=== PATIENT | female | born 1965 | race Two or more races ===

== ENCOUNTER 2024-11-28 08:22 | Outpatient (REF) | payer OTHER, SELFPAY ==
[2024-11-28 09:56] LABS: MANUAL DIFF FLAG NO
[2024-11-28 10:07] LABS: Basophils Absolute Auto 0.1 X10*3/uL (0.0-0.2); Basophils Percent Auto 1.1 % (0-2); Eosinophils Absolute Auto 0.1 X10*3/uL (0.0-0.4); Eosinophils Percent Auto 1.1 % (0-4); Hematocrit 42.3 % (37.0-47.0); Hemoglobin 13.8 g/dl (12.0-16.0); Imm Gran Abs Auto 0.01 X10*3/uL (0.00-0.03); Imm Gran Pct Auto 0.2 % (0.0-0.4); Lymphocytes Absolute Auto 1.3 X10*3/uL (1.2-4.9); Lymphocytes Percent Auto 23.6 % (20-40); Mean Corpuscular HGB Conc 32.6 g/dl (31.0-35.0); Mean Corpuscular Hemoglobin 28.9 pg (27.0-33.0); Mean Corpuscular Volume 88.7 fL (80.0-98.0); Mean Platelet Volume 9.6 fL (9.4-12.3); Monocytes Absolute Auto 0.4 X10*3/uL (0.1-1.2); Monocytes Percent Auto 7.6 % (2-11); Neutrophils Absolute Auto 3.5 x10*3/uL (2.0-8.3); Neutrophils Percent Auto 66.4 % (45-73); Platelet Count 257 X10*3/uL (160-400); Red Blood Count 4.77 X10*6/uL (4.20-5.50); White Blood Count 5.3 X10*3/uL (4.8-10.8)
[2024-11-28 10:35] LABS: Alanine Aminotransferase 69 U/L (0-31); Albumin Level 4.4 g/dL (3.5-5.0); Alkaline Phosphatase 74 U/L (39-117); Anion Gap 12 (12-20); Aspartate Amino Transferase 45 U/L (5-31); Bilirubin Total 0.4 mg/dL (0.0-1.0); Blood Urea Nitrogen 10 mg/dL (9-16); Carbon Dioxide 30 mmol/L (22-29); Chloride 108 mmol/L (96-108); Estimated Glomerular Filt Rate > 60; Glucose Random 85 mg/dL (60-115); Potassium 4.6 mmol/L (3.3-5.1); Sodium 145 mmol/L (135-145); Total Protein 7.5 g/dL (6.5-8.0)
[2024-11-28 10:45] LABS: Erythrocyte Sedimentation Rate 3 MM/HR (0-20)
[2024-11-28 11:04] LABS: Appearance Urine Clear; Color Urine Yellow; Glucose Urine UA Negative (Negative); Leukocyte Esterase Urine Negative (Negative); Nitrite Urine Negative (Negative); PH 5.5 (5.0-9.0); Specific Gravity - Urine 1.025 (1.005-1.025); UMIC TRIGGER UA YES; Urine Blood Moderate (2+) (Negative); Urine Ketones Negative (Negative); Urine Protein Negative (Neg-Trace)
[2024-11-28 11:18] LABS: Bacteria Urine 1+ (None Seen); Hyaline Casts Urine 0-2 /LPF (0-2); WBC Urine 0-5 /HPF (0-5)
[2024-11-28 11:30] LABS: Creatinine Urine 151.86 mg/dL; Protein/Creatinine Ratio, Ur 0.09 (<0.2); Total Protein Urine Random 13 mg/dL (<12)
[2024-11-29 16:29] LABS: Anti DNA DS Antibody 5 IU/mL; Antibody to SS-A Antigen <1.0 NEG AI (<1.0 NEG); Antibody to SS-B Antigen <1.0 NEG AI (<1.0 NEG); SM/Ribonucleoprotein Ab <1.0 NEG AI (<1.0 NEG); Smith Protein <1.0 NEG AI (<1.0 NEG)
[2024-11-29 21:34] LABS: Cardiolipin IgG Ab <2.0 GPL-U/mL; Cardiolipin IgM Ab 5.5 MPL-U/mL
[2024-11-30 11:24] LABS: Complement C3 115 mg/dL (83-193)
[2024-12-02 14:43] LABS: Vitamin D 25-OH, D2 21 ng/mL; Vitamin D 25-OH, D3 <4 ng/mL; Vitamin D 25-OH, Total 21 ng/mL (30-100)
[2024-12-02 14:59] LABS: DNAds, Crithidia Antibody 1:40 titer (<1:10); DNAds, Crithidia Antibody Positive (Negative)
[2024-12-03 12:23] LABS: Anti Nuclear Antibody Pattern Nuclear, Homogeneous; Anti Nuclear Antibody Screen POSITIVE (NEGATIVE)
[2024-12-03 14:43] LABS: Beta-2 Glycoprotein IgA 2.4 U/mL (<20.0); Beta-2 Glycoprotein IgG <2.0 U/mL (<20.0); Beta-2 Glycoprotein IgM 3.7 U/mL (<20.0)
[2024-12-03 15:54] LABS: IgA 270 mg/dL (47-310); IgG 1241 mg/dL (600-1640); IgM 92 mg/dL (50-300)
[2024-12-04 07:29] LABS: Prot Elec - Albumin 4.5 g/dL (3.8-4.8); Prot Elec - Alpha1 0.2 g/dL (0.2-0.3); Prot Elec - Alpha2 0.8 g/dL (0.5-0.9); Prot Elec - Beta 1 0.4 g/dL (0.4-0.6); Prot Elec - Beta 2 0.4 g/dL (0.2-0.5); Prot Elec - Gamma 1.1 g/dL (0.8-1.7); Prot Elec - Total Protein 7.4 g/dL (6.1-8.1)
[2024-12-04 12:13] LABS: Hexagonal Phase Neutralization Weak Positive (Negative)
[2024-12-04 12:43] LABS: PTT (LAC) Screen 60 sec (<=40); Thrombin Clotting Time 19 sec (13-19)
== END 2024-11-28 08:23 | disposition home or self-care (01) ==
LOC: HO.LAB 08:22
PROVIDERS: Visit Provider Student in an Organized Health Care Education/Training Program
DX: M32.9 Systemic lupus erythematosus, unspecified (principal); R76.8 Other specified abnormal immunological findings in serum; E55.9 Vitamin D deficiency, unspecified
CPT/HCPCS: 80053; 81001; 82306; 82570; 82784; 84156; 84165; 85025; 85597; 85598; 85613; 85652; 85670; 85730; 86038; 86039; 86140; 86146; 86147; 86160; 86225; 86235; 86255; 86334; 86335; 86880; 99202

== ENCOUNTER 2024-11-28 08:22 | Outpatient (AMB) | payer OTHER, SELFPAY ==
--- NOTE | 2024-11-28 08:23 | A.OFFVIS_ITS ---
Vital Signs 11/28/24 08:33 Height 5 ft 5 in Weight 125 lb 10.616 oz BMI 20.9 BP 90/64 Blood Pressure Location Lt brachial Position Sitting Pulse 87 Pulse Source Pulse Oximeter Pulse Oximetry (%) 97 Oxygen Delivery Method Room Air Intake Visit Reasons: SLE Intake Note: Patient presents for SLE. I feel pain on my toes numbness and my legs feel numb. I been feeling this symptoms for about two years. I don't take any medication Allergies No Known Allergies Allergy (Verified 11/28/24 08:30) Medication List - Last Reconciled 11/28/24 by Virginia Multani MD albuterol sulfate 90 mcg/actuation (Ventolin HFA) inhalation apixaban (Eliquis) 5 mg PO BID metoprolol tartrate 25 mg PO BID mometasone 0.1% 0 appl topical HPI Comments Details: Patient is a 59 y.o. female smoker (88 pack year) with Afib on Eliquis who presents for evaluation of positive MARTINEZ. About 2 years ago she started to notice pins and needles affecting just her feet. 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 The sensation would occur every day. Improved with movement of the feet. Had EMG done which she was told was normal. Then 6 months ago she started noticing black stools. Fecal occult was positive for blood and so she was sent to GI and had a colonoscopy as well as Urology to evaluate her bladder. All testing was unremarkable. GI did not attribute the Eliquis with her black stools. 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 Denies photosensitivity, alopecia, oral/nasal ulcers, sicca symptoms, lymphadenopathy, chest pain/shortness of breath, inflammatory type joint pain, foamy urine, lower extremity edema, muscle weakness, Raynaud's Also denies history of seizure, CVA, psychosis, history of kidney problems, history of cytopenias, history of VTE including PE or DVTs OB History: +1 (miscarriage at 1-2 months) No hx of pre-eclampsia No hx of placental insufficiency Strong family history of lupus on maternal side: sister, aunt, cousin, another aunt who from lupus [facility] Medical History (Updated 11/28/24 @ 09:06 by Virginia Multani MD) Positive MARTINEZ (antinuclear antibody) Family History (Updated 11/28/24 @ 08:31 by SUSAN Olson) Sister Lupus (systemic lupus erythematosus) Social History (Updated 11/28/24 @ 08:33 by SUSAN Olson) Household Members: None Housing: Apartment Alcohol intake: current Patient Tobacco Use Status: Current someday Tobacco user Tobacco use type: Cigarette Cigarette Packs Per Day: 0.5 Years Smoked: 40 Review of Systems Const Details: Review of Systems Constitutional: Denies fever, chills, weight loss ENT: Denies vision changes, eye pain or eye redness, dental caries, dry mouth GI: Denies nausea, vomiting, diarrhea, abdominal pain, change in BM Pulm: Denies SOB, LUNA, hemoptysis, wheezing Cards: Denies chest pain, palpitations Skin: Denies Raynaud's, rash, nail changes, photosensitivity, 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 Well appearing and in no apparent painful distress HEENT Conjunctiva and sclera clear. ?Pupils equal round and reactive to light. ?No lymphadenopathy. ? CHEST/RESPIRATORY SYSTEM Normal respiratory effort and able to speak in complete sentences. ?Clear to auscultation bilaterally. ?No crackles, rales, rhonchi, wheezes heard. CARDIAC SYSTEM Regular rate and rhythm. ?S1 and S2 heard no murmurs. 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 No deformities noted. ?No synovitis noted to the MCPs, PIPs or DIPs. ?No tenderness to palpation of these joints. Wrists: ?Full range of motion at the wrists without pain. ?No tenderness to palpation or synovitis noted to the wrists. Elbows: Full range of motion without pain. No tenderness, weakness, swelling, increased warmth or erythema. Shoulders: Full range of motion without pain. No tenderness, weakness, swelling, increased warmth or erythema. Hips: Full range of motion without pain. Hip bursa: No tenderness to palpation Knees: ?Full range of motion. ?No tenderness, swelling, increased warmth or erythema.?No effusion or crepitations Ankles: Full range of motion. ?No tenderness, swelling, increased warmth or erythema.? Feet: ?Negative squeeze test. ?No tenderness to palpation or swelling of the MTPs. Tender points:?No tenderness to palpation of the bilateral trapezius, supraspinatus, greater trochanters, anterior costochondral junctions, bilateral gluteal areas, bilateral suboccipital muscle insertions SKIN Faint erythema noted over the cheeks and above eye brows Results Reviewed Results Reviewed: 07/2024 MARTINEZ 1:640 Homogenous dsDNA 860 (<200) 06/2024 WBC 3.1 RBC 4.6 HB 13.4 HCT 42.[address] Abdomen/Pelvis w/ contrast 06/2024 Lower thorax: No infiltrate in the basal lungs. No pleural effusions. No significant pericardial effusion. Liver: No new lesion detected Gallbladder/biliary tree: No calcified gallstones or pericholecystic inflammatory change. No biliary duct dilation Spleen: No abnormality detected Pancreas: No new lesion detected. No pancreatic ductal dilatation Adrenal glands: No masses. Kidneys/ureters: No hydronephrosis or perinephric fat stranding. No lesion detected. Vasculature: Mild atherosclerotic calcifications. No abdominal aortic aneurysm. Hepatic veins and portal vein are patent. Peritoneum: No evidence of free intraperitoneal air, free fluid or organized collection. Lymph nodes: No lymphadenopathy detected Bowel: No evidence of bowel obstruction. No bowel inflammatory changes. Normal appendix Body wall: No suspicious mass Bladder: Diffuse wall thickening is probably related to underdistention Reproductive: Interval decrease in size of a large hair homogeneous uterine fibroid replacing much of the uterus which now appears up to 9.6 cm compared with 12 cm previously. 1.1 cm cyst in the left ovary. No right ovarian abnormality Bones: Multilevel degenerative changes in the spine. Degenerative changes also involve the sacroiliac joints and symphysis pubis as before. Assessment & Plan Assessment & Plan (1) Positive MARTINEZ (antinuclear antibody): Code(s): R76.8 - Other specified abnormal immunological findings in serum Category: Medical Plan: #Positive MARTINEZ Patient with high titre MARTINEZ and dsDNA without any other obvious signs or symptoms related to lupus Will check lupus related labs and make a determination of treatment based on the results Plan - Check CBC, CMP, ESR, CRP, LA, B2G, ACL, UA, SPEP, UPC, Urine fixation, serum fixation, vit D, - RTC 2 weeks Plan I spent 45 minutes reviewing the record and labs, taking a history, examining the patient, discussing the treatment plan and documenting in the medical record Orders: Orders Anti DNA DS Antibody Today M3.9 - Systemic lupus erythematosus, unspecified Complement C3 Today M3.9 - Systemic lupus erythematosus, unspecified C Reactive Protein Today M32.9 - Systemic lupus erythematosus, unspecified DNA Double Stranded-Crithidia Today M32.9 - Systemic lupus erythematosus, unspecified Erythrocyte Sedimentation Rate Today M32.9 - Systemic lupus erythematosus, unspecified Protein Creatinine Ratio, Ur Today M32.9 - Systemic lupus erythematosus, unspecified Complete Blood Count Auto Diff Today M3.9 - Systemic lupus erythematosus, unspecified Direct Karina (CAMILO) Today M3.9 - Systemic lupus erythematosus, unspecified Protein Electrophoresis, Serum Today M3.9 - Systemic lupus erythematosus, unspecified Immunofixation Pnl, Serum Today R76.8 - Other specified abnormal immunological findings in serum MARTINEZ Reflex Titer and Pattern Today M32.9 - Systemic lupus erythematosus, unspecified Anti Extractable Nuclear Ag Today M32.9 - Systemic lupus erythematosus, unspecified Complement C4 Today M32.9 - Systemic lupus erythematosus, unspecified Lupus Anticoagulant Panel Today M32.9 - Systemic lupus erythematosus, unspecified Sjogren's Antibodies Today M32.9 - Systemic lupus erythematosus, unspecified UA w Microscopic Today M32.9 - Systemic lupus erythematosus, unspecified Beta-2 Glycoprotein Antibody Today M32.9 - Systemic lupus erythematosus, unspecified Cardiolipin Antibodies Today M32.9 - Systemic lupus erythematosus, unspecified Comprehensive Met. Panel Today M32.9 - Systemic lupus erythematosus, unspecified Vitamin D 25-OH (D2 and D3) Today E55.9 - Vitamin D deficiency, unspecified, M32.9 - Systemic lupus erythematosus, unspecified Immunoglobulins,IgG IgA IgM Today M32.9 - Systemic lupus erythematosus, unspecified Immunofixation, Random Urine Today M32.9 - Systemic lupus erythematosus, unspecified Coding Level of Care Code New Pt Level 4 (40617) Complex EM visit Add On G2211 Diagnoses Positive MARTINEZ (antinuclear antibody) R76.8
[2024-11-28 08:33] VITALS: BP 90/64; PULSE 87; O2SAT 97; BMI 20.9
== END 2024-11-28 09:19 | disposition home or self-care (01) ==
LOC: HO.RHE 08:22
PROVIDERS: Visit Provider Student in an Organized Health Care Education/Training Program
DX: R76.8 Other specified abnormal immunological findings in serum (principal)
CPT/HCPCS: 99204; G2211

== ENCOUNTER 2024-12-20 10:32 | Outpatient (AMB) | payer OTHER, SELFPAY ==
--- NOTE | 2024-12-20 10:53 | A.OFFVIS_ITS ---
Vital Signs 12/20/24 10:57 Height 5 ft 5 in Weight 127 lb 3.307 oz BMI 21.2 BP 115/68 Blood Pressure Location Rt brachial Position Sitting Pulse 72 Pulse Source Pulse Oximeter Pulse Oximetry (%) 99 Oxygen Delivery Method Room Air Intake Visit Reasons: SLE Intake Note: Patient presents for SLE. Allergies No Known Allergies Allergy (Verified 12/20/24 10:57) Medication List - Last Reconciled 12/20/24 by Virginia Multani MD albuterol sulfate 90 mcg/actuation (Ventolin HFA) inhalation apixaban (Eliquis) 5 mg PO BID metoprolol tartrate 25 mg PO BID mometasone 0.1% 0 appl topical HPI Comments Details: Patient is a 59 y.o. female smoker (88 pack year) with Afib on Eliquis who presents for follow up Interval History: Patient last seen 11/28/2024. At that time she was establishing care for the evaluation of positive MARTINEZ. History at that time was not consistent with connective tissue disease with no h istory of Raynaud's, photosensitivity, oral or nasal ulcers, sicca symptoms or any venous thromboembolism. She did have a very strong family history of lupus Exam was only significant for skin hyperpigmentation around the eyes. She was sent for blood work and urine studies Today, Patient does have have any new complaints She states that the elevated transaminases and RBCs in the blood are not new and they were previously evaluated by her PCP and she was sent for ultrasound and urologic evaluation which all came back normal. Rheumatologic History: Due to her high positive MARTINEZ, positive double-stranded DNA and strong family history of lupus it is reasonable to diagnosed her as undifferentiated connective tissue disease versus early lupus Initial history: About 2 years ago she started to notice pins and needles affecting just her feet. 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 The sensation would occur every day. Improved with movement of the feet. Had EMG done which she was told was normal. Then 6 months ago she started noticing black stools. Fecal occult was positive for blood and so she was sent to GI and had a colonoscopy as well as Urology to evaluate her bladder. All testing was unremarkable. GI did not attribute the Eliquis with her black stools. 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 Denies photosensitivity, alopecia, oral/nasal ulcers, sicca symptoms, lymphadenopathy, chest pain/shortness of breath, inflammatory type joint pain, foamy urine, lower extremity edema, muscle weakness, Raynaud's Also denies history of seizure, CVA, psychosis, history of kidney problems, history of cytopenias, history of VTE including PE or DVTs OB History: +1 (miscarriage at 1-2 months) No hx of pre-eclampsia No hx of placental insufficiency Strong family history of lupus on maternal side: sister, aunt, cousin, another aunt who from lupus Current Rheumatology Medication(s): [facility] Medical History (Updated 12/20/24 @ 11:58 by Virginia Multani MD) Hematuria Transaminitis Long-term use of Plaquenil Undifferentiated connective tissue disease Positive MARTINEZ (antinuclear antibody) Family History Sister Lupus (systemic lupus erythematosus) Social History Household Members: None Housing: Apartment Alcohol intake: current Patient Tobacco Use Status: Current someday Tobacco user Tobacco use type: Cigarette Cigarette Packs Per Day: 0.5 Years Smoked: 40 Review of Systems Const Details: Review of Systems Constitutional: Denies fever, chills, weight loss ENT: Denies vision changes, eye pain or eye redness, dental caries, dry mouth GI: Denies nausea, vomiting, diarrhea, abdominal pain, change in BM Pulm: Denies SOB, LUNA, hemoptysis, wheezing Cards: Denies chest pain, palpitations Skin: Denies Raynaud's, nail changes, photosensitivity, 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 Well appearing and in no apparent painful distress HEENT Conjunctiva and sclera clear. ?Pupils equal round and reactive to light. ?No lymphadenopathy. ? CHEST/RESPIRATORY SYSTEM Normal respiratory effort and able to speak in complete sentences. ?Clear to auscultation bilaterally. ?No crackles, rales, rhonchi, wheezes heard. CARDIAC SYSTEM Regular rate and rhythm. ?S1 and S2 heard no murmurs. 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 No deformities noted. ?No synovitis noted to the MCPs, PIPs or DIPs. ?No tenderness to palpation of these joints. Wrists: ?Full range of motion at the wrists without pain. ?No tenderness to palpation or synovitis noted to the wrists. Elbows: Full range of motion without pain. No tenderness, weakness, swelling, increased warmth or erythema. Shoulders: Full range of motion without pain. No tenderness, weakness, swelling, increased warmth or erythema. Hips: Full range of motion without pain. Hip bursa: No tenderness to palpation Knees: ?Full range of motion. ?No tenderness, swelling, increased warmth or erythema.?No effusion or crepitations Ankles: Full range of motion. ?No tenderness, swelling, increased warmth or erythema.? Feet: ?Negative squeeze test. ?No tenderness to palpation or swelling of the MTPs. Tender points:?No tenderness to palpation of the bilateral trapezius, supraspinatus, greater trochanters, anterior costochondral junctions, bilateral gluteal areas, bilateral suboccipital muscle insertions SKIN Faint erythema noted over the cheeks and above eye brows Results Reviewed Results Reviewed: Laboratory Tests 11/28/24 11/28/24 09:54 10:00 WBC 5.3 RBC 4.77 Hgb 13.8 Hct 42.3 MCV 88.7 MCH 28.9 MCHC 32.6 Plt Count 257 ESR 3 Sodium 145 Potassium 4.6 Chloride 108 Carbon Dioxide 30 H BUN 10 Creatinine 0.69 Calcium 9.0 Total Bilirubin 0.4 AST 45 H ALT 69 H Alkaline Phosphatase 74 C-Reactive Protein 0.10 PEP Interpretation SEE NOTE 25-OH Vitamin D Total 21 L Urine Color Yellow Urine Appearance Clear Urine pH 5.5 Ur Specific [place] 1.025 Urine Protein Negative Urine Glucose (UA) Negative Urine Ketones Negative Urine Blood Moderate (2+) H Urine Nitrite Negative Urine RBC 3-5 H Urine WBC 0-5 Ur Squamous Epith Cells 6-10 U Random Total Protein 13 H IgG Total 1241 IgA Total 270 IgM 92 MARTINEZ Screen POSITIVE A MARTINEZ Titer 1:320 H MARTINEZ Pattern Nuclear, Homogeneous A SS-A/Ro Antibody <1.0 NEG SS-B/La Antibody <1.0 NEG Sm (Aldana) Antibody <1.0 NEG SM/MIXING MACHINE FEEDER IgG Antibody <1.0 NEG Double Strand DNA Ab 5 H Anti-ds DNA Titer (Crith) 1:40 H Anti-ds DNA (Crithidia) Positive A Beta-2-GPI IgG Ab <2.0 Beta-2-GPI IgA Ab 2.4 Beta-2-GPI IgM Ab 3.7 Anti-Cardiolipin IgG Ab <2.0 Anti-Cardiolipin IgM Ab 5.5 Complement C3 115 Complement C4 29 Assessment & Plan Assessment & Plan (1) Undifferentiated connective tissue disease: Code(s): M35.9 - Systemic involvement of connective tissue, unspecified Category: Medical Plan: #Undiffentiated connective tissue disease Patient is a 59-year-old female who is here today for follow up of positive MARTINEZ. Her lab work shows evidence of high positive MARTINEZ 1:320 and positive double- stranded DNA. Normal complement, normal inflammatory markers, negative Aldana and SSA antibodies. She does not have any signs or symptoms of inflammatory arthritis. She does have this faint rash on her face but she denies any photosensitivity. Given her strong family history of lupus and her concerning blood work I think it is reasonable to diagnosed her with undifferentiated connective tissue disease versus early lupus. Discussed with the patient risks and benefits of treatment and she would like to proceed with Plaquenil nathanaelmen tAndres Marrufo - Plaquenil 200mg daily - Ophthal referral - RTC 6 months - Labs before next visit: CBC, CMP, ESR, CRP, C3, C4, UA, UPC (2) Transaminitis: Code(s): R74.01 - Elevation of levels of liver transaminase levels Category: Medical Plan: #Transaminitis Patient with mildly elevated AST and ALT. She states that she has already been evaluated by her PCP including ultrasound and chest and abdomen scans. It is possible that she may have fatty liver disease or she may have a component of autoimmune hepatitis. Plan - Retrieve records from her PCP including ultrasound and scans - check smooth muscle antibodies, liver kidney microsomal type 1 antibodies, liver cytosol type 1 antibodies, ANCAs (3) Hematuria: Code(s): R31.9 - Hematuria, unspecified Category: Medical Qualifiers: Hematuria type: unspecified type Qualified Code(s): R31.9 - Hematuria, unspecified Plan: #Hematuria Patient with hematuria on UA. States that she was previously evaluated by Urology and there has not been any formal diagnosis made We will follow up with patient to forward urology records to me. 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 Category: Medical Plan: #Long-term Use of Hydroxychloroquine Discussed with patient the risks and benefits of hydroxychloroquine in managing the rheumatic condition Benefits include: - Reduced pain, reduce mortality, maintenance of remission and reduction of flares Risks include: - GI upset, skin hyperpigmentation, retinal toxicity (especially after more than 5 years of use), myopathy Advised yearly ophthalmology visits Referral placed Plan I spent 30 minutes reviewing the record and labs, taking a history, examining the patient, discussing the treatment plan and documenting in the medical record Orders: Orders Complement C3 6 Months M35.9 - Systemic involvement of connective tissue, unspecified UA w Microscopic 6 Months M35.9 - Systemic involvement of connective tissue, u nspecified Complete Blood Count Auto Diff 6 Months M35.9 - Systemic involvement of connective tissue, unspecified Liver Kidney Microsomal Ab 6 Months K75.4 - Autoimmune hepatitis Liver Cytosol (LC-1) Auto Ab 6 Months K75.4 - Autoimmune hepatitis ANCA Vasculitides 6 Months K75.4 - Autoimmune hepatitis Complement C4 6 Months M35.9 - Systemic involvement of connective tissue, unspecified C Reactive Protein 6 Months M35.9 - Systemic involvement of connective tissue, unspecified Erythrocyte Sedimentation Rate 6 Months M35.9 - Systemic involvement of connective tissue, unspecified Anti DNA DS Antibody 6 Months M35.9 - Systemic involvement of connective tissue, unspecified Protein Creatinine Ratio, Ur 6 Months M35.9 - Systemic involvement of connective tissue, unspecified Comprehensive Met. Panel 6 Months M35.9 - Systemic involvement of connective tissue, unspecified Smooth Muscle Antibody 6 Months K75.4 - Autoimmune hepatitis Mitochondrial Antibody 6 Months K75.4 - Autoimmune hepatitis Referrals Ophthalmology Referral M35.9 - Systemic involvement of connective tissue, unspecified, Z79.899 - Other longterm (current) drug therapy Medications: New hydroxychloroquine (Plaquenil) 200 mg PO DAILY 90 tabs 1RF M35.9 - Systemic involvement of connective tissue, unspecified Coding Level of Care Code Est Pt Level 4 (02748) Complex EM visit Add On G2211 Diagnoses Undifferentiated connective tissue disease M35.9 Transaminitis R74.01 Hematuria, unspecified type R31.9 Hematuria type: unspecified type Long-term use of Plaquenil Z79.899
[2024-12-20 10:57] VITALS: BP 115/68; PULSE 72; O2SAT 99; BMI 21.2
--- OUTSIDE RECORDS SUMMARY | 2024-12-20 14:08 | XMS_ITS | Clinical Summary ---
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 0 Active ergocalciferol (VITAMIN D2) capsule 38610 units Take 1 capsule (50,000 Units total) by mouth once a week. 0 Active Cyanocobalamin (B-12) 1000 MCG TABS Take by mouth. 0 Active apixaban (ELIQUIS) 5 MG TABS tablet Take by mouth every 12 (twelve) hours. 0 Active metoprolol succinate (TOPROL-XL) 24 hr tablet 25 mg Take by mouth daily. 0 Active olopatadine (PATANOL) 0.1 % ophthalmic solution 1 drop 2 (two) times a day. 0 Active Albuterol Sulfate 108 (90 Base) MCG/ACT AEPB Inhale into the lungs. 0 Active mometasone (ELOCON) 0.1 % cream Apply topically daily. 0 Active cetirizine (ZyrTEC) 10 MG tablet Take 1 tablet (10 mg total) by mouth daily. 0 Active Active Problems No known active problems Social History Tobacco Use Types Packs/Day Years Used Date Smoking Tobacco: Never Smokeless Tobacco: Never Tobacco Cessation:Counseling Given: Not Answered Alcohol Use Standard Drinks/Week Comments Yes 0 (1 standard drink = 0.6 oz pur e alcohol) 2 glasses of wine a day Sex and Gender Information Value Date Recorded Sex Assigned at Not on file Gender Identity Not on file Sexual Orientation Not on file Job Start Date Occupation Industry Not on file Not on file Not on file Last Filed Vital Signs Vital Sign Reading Time Taken Comments Blood Pressure 122/75 09/04/2024 11:46 AM EDT Pulse 90 09/04/2024 11:46 AM EDT Temperature 36.4 ??C (97.6 ??F) 09/04/2024 1 1:46 AM EDT Respiratory Rate - - Oxygen Saturation 100% 09/04/2024 11: 46 AM EDT Inhaled Oxygen Concentration - - Weight 58.4 kg (128 lb 12.8 oz) 024 11:46 AM EDT Height 165.1 cm (5' 5 ) 08/17/2024 8:40 AM EDT Body Mass Index 21.43 08/17/2024 8:40 AM EDT Plan of Treatment Health Maintenance Due Date Last Done Comments Hepatitis B Vaccines (1 of 3 - 3-dose series) 1966 Hepatitis C Screening 1966 Depression Screening 1978 Preventative Health Evaluation 1984 Shingrix-Zoster Vaccine (1 o f 2) 1985 Cervical Cancer Screening (Pap Smear) 1987 Colon Cancer Screening (Colonoscopy) 2011 Breast Cancer Screening (Mammogram) 2016 Pneumococcal Vaccine (2 of 2 - PCV) 10/19/2018 10/19/2017 COVID-19 Vaccine (3 - Pfizer risk series) 05/01/2021 04/03/2021, 03/14/2021 DTap / Tdap / Td (2 - Td or Tdap) 03/27/2024 03/27/2014 Influenza Vaccine (#1) 2024 2, 10/14/2020, 07/29/2017 RSV Ped < 20 months Aged Out No longe r eligible based on patient's age to complete this topic Care Teams Laborer Cutting Tool Relationship Specialty Start Date End Date Suhail Mir MD [address] [place] [address] PCP - General Internal Medicine 07/17/24
--- OUTSIDE RECORDS SUMMARY | 2024-12-20 14:08 | XMS_ITS | Clinical Summary ---
Author Organization [facility] Address [address] [place] [address] Phone Care Team Providers Care Seating Captain Name Role Phone Suhail Mir MD Primary Care Provider [phone] Allergies Active Allergy Reactions Criticality Noted Date Comments Latex 10/11/2024 Medications Medication Sig Dispensed Refills Start Date End Date Status apixaban (Eliquis) 5 mg tablet Take 5 mg by mouth every 12 hours. 10/17/2023 Active cetirizine (ZyrTEC) 10 mg tablet Take 1 Tab by mouth daily for 180 days. 10/14/2020 Active cholecalciferol (VITAMIN D-3) 50 mcg (2,000 unit) tablet Take 1 Tablet by mouth daily. Active metoprolol tartrate (LOPRESSOR) 25 mg tablet Take 1 Tablet by mouth 2 times daily for 180 days. 04/03/2024 Active omeprazole (PriLOSEC) [address] capsule Take 1 Capsule by mouth daily. Active ergocalciferol (VITAMIN D-2) 1,250 mcg (50,000 unit) capsule Take 1 Capsule by mouth once a week for 12 doses. Active mometasone (ELOCON) 0.1 % cream Apply topically 1 (one) time each day for 21 days. 45 g 1 10/01/2024 Active polyethylene glycol (Golytely) 236-22.74-6.74 -5.86 gram solution Take 4L by mouth once for one dose. May substitue any PEG. Starting at 6PM the night before your procedure drink 1 8oz glasses at your own pace until you complete half of the gallon. Finish 2nd half of the gallon 5 hours before your procedure. 4000 mL 10/03/2024 Active bisacodyL (DULCOLAX) 5 mg EC tablet Take 2 tablets by mouth right before beginning bowel prep. See instructions provided by the office 2 tablet 10/03/2024 Active polyethylene glycol 400 (Visine Dry Eye Relief) 1 % drops Administer into affected eye(s). Active Ventolin HFA 90 mcg/actuation inhaler INHALE TWO PUFFS BY MOUTH EVERY 4 HOURS NEEDED FOR COUGH, WHEEZING OR FOR SHORTNESS OF BREATH 18 g 1 11/13/2024 Active Active Problems Problem Noted Date Diagnosed Date Positive double stranded DNA antibody test 08/22 Assessment & Plan (10/01/2024 1:56 PM EST): Referral to rheumatology has been placed for double-stranded DNA positive. I have also placed referral to dermatology for skin check. Orders: Ambulatory referral to Rheumatology; Future Ambulatory referral to Dermatology; Future Secondary hypercoagulable state 07/06/2023 PAF (paroxysmal atrial fibrillation) 11/12/2022 Vitamin D deficiency 05/29/2021 BERTIN (iron deficiency anemia) 10/20/2020 COPD (chronic obstructive pulmonary disease) Enlarged uterus 07/15/2017 Pulmonary nodules 07/15/2017 Overview (08/22/2024): Repeat CT chest 09/2018: stable, considered benign. No further imaging indicated Pulmonary (08/26/17): PFT ordered, largest nodule was 4.2 mm and there was no adenopathy. She has significant COPD and smoking cessation counseling was provided Eczema 05/13/2016 Cigarette smoker 03/06/2010 Assessment & Plan (10/01/2024 1:56 PM EST): Smoking cessation counseling done today. Referral to thoracic surgery has been placed to schedule a low-dose CAT scan of the lung for next month. Her chest x-ray was reassuring. Orders: Ambulatory referral to Thoracic Surgery; Future Encounters Date Type Department Care Team Description 11/17/2024 8:27 AM EST - 11/17/2024 11:59 PM EST Hospital Encounter [facility] CT Scan [address] [place] [address] Encounter for screening for malignant neoplasm of respiratory organs; Nicotine dependence, cigarettes, uncomplicated Discharge Disposition: Home or Self Care 11/07/2024 Telephone Lung Screening Program - [place] [address] [place] [address] Radha Avila [place] Appointment (Upcoming LDCT) 10/16/2024 Telephone Gastroenterology - [place] [address] [place] [address] Rafiq Landeros, SPECIAL PROCEDURE 10/01/2024 1:30 PM EST [facility] [address] [place] [id number] Suhail Mir MD Weight loss (Primary Dx); Positive double stranded DNA antibody test; Family history of systemic lupus erythematosus; Cigarette smoker from Last 3 Months Immunizations Name Administration Dates Next Due Influenza Quadravalent, MDCK , 0.5ml, preservative free (Flucelvax) 6mo and older 11/12/2022,10/14/2020 Influenza Quadravalent, MDCK , 0.5ml, with preservative (Flucelvax) 6mo and older 07/29/2017 Pneumococcal polysaccharide 23 valent (Pneumovax 23) 2yo and older 10/19/2017 Tdap Tetanus diptheria acell ular pertussis (Boostrix; Adacel) 7yo and older 03/27/2014 Surgical History Surgery Date Site/Laterality Comments TUBAL LIGATION PROCEDURE: HISTORICAL TUBAL LIGATION COLONOSCOPY 07/22/2017 PROCEDURE: HISTORICAL COLONOSCOPY; COMMENT: Visually normal, random biopsies obtained: All biopsies normal. UPPER GASTROINTESTINAL ENDOSCOPY 07/22/2017 PROCEDURE: [place] UPPER GI ENDOSCOPY PERFORMED; COMMENT: Visually normal, duodenal and antral gastric biopsies obtained: All biopsies normal, no H. pylori infection. Medical History Medical History Date Comments Eczema 05/13/2016 DX:Eczema Cigarette smoker 03/06/2010 DX:Cigarette sm oker COPD (chronic obstructive pu lmonary disease) (CMS/HCC) 07/15/2017 DX:COPD (chronic obstructive pulmonary disease) (HCC) Enlarged uterus 07/15/2017 DX:Enlarged uter us Pancreatic mass 07/15/2017 DX:Pancreatic ma ss Pulmonary nodules 07/15/2017 DX:Pulmonary n odules; COMMENT: Pulmonary (08/26/17): PFT ordered, largest nodule was 4.2 mm and there was no adenopathy. The nodule should be followed up with a repeat chest CT in 12 months. She has significant COPD and smoking cessation counseling was provided Heavy menses DX:Heavy menses Anemia DX:Anemia Positive double stranded DNA antibody test 08/12/2024 DX:Positive double stranded DNA antibody test Anemia DX:Anemia Arrhythmia DX:Arrhythmia Family History Medical History Relation Name Comments Other: Lupus Sister Other cancer Uncle ?throat cancer Breast cancer Neg Hx Colon cancer Neg Hx Ovarian cancer Neg Hx Relation Name Status Comments Daughter 1 Alive Daughter 2 Alive Father some liver issu es Mother hepatitits Sister Alive one has lupus Son 1 Alive Son 2 Alive Uncle Alive Social History Tobacco Use Types Packs/Day Years Used Date Smoking Tobacco: Never Cigarettes Smokeless Tobacco: Never Tobacco Cessation:Counseling Given: Not Answered Alcohol Use Standard Drinks/Week Comments Yes 0 (1 standard drink = 0.6 oz pur e alcohol) Sex and Gender Information Value Date Recorded Sex Assigned at Not on file Gender Identity Not on file Sexual Orientation Not on file Job Start Date Occupation Industry Not on file Not on file Not on file Obstetrics History Last Filed Vital Signs Vital Sign Reading Time Taken Comments Blood Pressure 136/80 10/01/2024 1:27 PM EST Pulse 80 10/01/2024 1:27 PM EST Temperature - - Respiratory Rate - - Oxygen Saturation - - Inhaled Oxygen Concentration - - Weight 56.2 kg (124 lb) 10/11/2024 12:00 PM EST Height 165.1 cm (5' 5 ) 10/11/2024 12:00 PM EST Body Mass Index 20.63 10/11/2024 12:00 PM EST Plan of Treatment Upcoming Encounters Date Type Department Care Team (Late st Contact Info) Description 01/22/2025 3:30 PM EST Appointment [facility] Endoscopy [address] [place] [phone] Rafiq Landeros DO [address] [facility] [address] [place] [address] 02/11/2025 9:30 AM EDT Office Visit Internal Medicine - [facility] [address] [place] [phone] Suhail Mir MD [address] [place] [id number] 07/11/2025 8:30 AM EDT Appointment Radiology Department [address] [address] Health Maintenance Due Date Last Done Comments Hepatitis A Vaccines (1 of 2 - Risk 2-dose series) 1985 Hepatitis B Vaccines (1 of 3 - 19+ 3-dose series) 1985 Zoster Vaccines (1 of 2) 1985 Pneumococcal Vaccine: Pediatrics (0 to 5 Years) and At-Risk Patients (6 to 64 Years) (2 of 2 - PCV) 10/19/2018 10/19/2017 COVID-19 Vaccine (3 - Pfizer risk series) 05/01/2021 04/03/2021, 03/14/2021 Colorectal Cancer Screening: Stool Based Tests (FOBT/FIT) 2022 Social Influencers of Health Screening 2022 DTaP,Tdap,and Td Vaccines (2 - Td or Tdap) 03/27/2024 03/27/2014 Influenza Vaccine (#1) 2024 , 10/14/2020, 07/29/2017 Depression Screening 04/03/2025 04/03/2024 Breast Cancer Screening 06/29/2026 06/29/20, 06/29/2024, 05/21/2023, Additional history exists Cervical Cancer Screening: HPV 06/03/2027 06/03/2022 Cholesterol Screening (Lipid Panel) 04/04/2029 04/04/2024, 04/04/2024 Colorectal Cancer Screening: Colonoscopy Discontinued 07/22/2017 Hepatitis C Screening Completed 08/09/2017 HIV Screening Completed 07/10/2024, 07/10/2024 HIB Vaccines Aged Out No longer eligi ble based on patient's age to complete this topic HPV Vaccines Aged Out No longer eligi ble based on patient's age to complete this topic IPV Vaccines Aged Out No longer eligi ble based on patient's age to complete this topic MMR Vaccines Aged Out No longer eligi ble based on patient's age to complete this topic Meningococcal ACWY Vaccine Aged Out N o longer eligible based on patient's age to complete this topic RSV Immunization Patients Under 20 months Aged Out No longer eligible based on patient's age to complete this topic Varicella Vaccines Aged Out No longer eligible based on patient's age to complete this topic Procedures Procedure Name Priority Date/Time Associated Diagnosis Comments CT LUNG SCREENING Routine 11/17/2024 8:4 4 AM EST Encounter for screening for malignant neoplasm of respiratory organs Nicotine dependence, cigarettes, uncomplicated HIV SCREENING Routine 07/10/2024 SCREENING MAMMOGRAPHY BI 2-VIEW BREAST INC CAD Routine 06/29/2024 1:12 PM EDT Encounter for screening mammogram for malignant neoplasm of breast LIPID PANEL Routine 04/04/2024 DEPRESSION SCREENING Routine 04/03/2024 HPV Routine 06/03/2022 HEPATITIS C SCREENING Routine 08/09/2017 COLONOSCOPY Routine 07/22/2017 from Last 3 Months or Most Recently Relevant to Health Maintenance Results * CT Lung Screening (11/17/2024 8:44 AM EST) Anatomical Region Laterality Modality Chest Computed Tomogra phy 11/27/2024 3:54 PM EST Impressions 11/27/2024 4:00 PM EST Similar tiny pulmonary nodules. No new or enlarging pulmonary nodules. Lung RADS 2, recommend low-dose screening chest CT in 12 months -------- FINAL REPORT -------- Dictated By: Juany Melendez Dictated Date: 11/27/2024 15:54 ET Assigned Physician: Juany Melendez Reviewed and Electronically Signed By: Juany Melendez Signed Date: 11/27/2024 16:00 ET Workstation ID: [id number] Transcribed By: Self Edit Transcribed Date: 11/27/2024 15:54 ET Narrative 11/27/2024 4:00 PM EST INDICATION: Current smoker with 42 pack-year smoking history FINDINGS: Low-dose CT scan of the chest obtained as a lung cancer screening study. Scanner: GE light speed 64 slice VCT Dose reduction technique: ASIR (Adaptive statistical iterative reconstruction) and/or AEC (automated exposure control) Dose: total exam DLP 103 mGY per cm COMPARISON: Compared to multiple prior studies most recent from November 12, 2020 Lung: Emphysematous changes without infiltrates or effusions. Scattered 1 to 3 mm noncalcified pulmonary nodules are unchanged for example 3 mm subpleural nodule laterally in the right upper lobe on series 3 image 96. No new or enlarging pulmonary nodules. 3 mm calcified granuloma in the right lung base. Lymph nodes: No thoracic lymphadenopathy. Mediastinum: Trachea and esophagus are within normal limits. Heart normal in size and shape without pericardial effusion. Mediastinal vascular structures are normal in course and caliber. Bony structures: Within normal limits for the patient's age. Procedure Note Juany Melendez MD - 11/27/2024 INDICATION: Current smoker with 42 pack-year smoking history FINDINGS: Low-dose CT scan of the chest obtained as a lung cancerscreening study. Scanner: GE light speed 64 slice VCT Dose reduction technique: ASIR (Adaptive statistical iterativereconstruction) and/or AEC (automated exposure control) Dose: total exam DLP 103 mGY per cm COMPARISON: Compared to multiple prior studies most recent from 2019 Lung: Emphysematous changes without infiltrates or effusions. Scattered 1 to 3 mm noncalcified pulmonary nodules are unchanged forexample 3 mm subpleural nodule laterally in the right upper lobe on series3 image 96. No new or enlarging pulmonary nodules. 3 mm calcified granuloma in the right lung base. Lymph nodes: No thoracic lymphadenopathy. Mediastinum: Trachea and esophagus are within normal limits. Heart normalin size and shape without pericardial effusion. Mediastinal vascularstructures are normal in course and caliber. Bony structures: Within normal limits for the patient's age. IMPRESSION: Similar tiny pulmonary nodules. No new or enlarging pulmonary nodules. Lung RADS 2, recommend low-dose screening chest CT in 12 months -------- FINAL REPORT -------- Dictated By: Juany Melendez Dictated Date: 11/27/2024 15:54 ET Assigned Physician: Juany Melendez Reviewed and Electronically Signed By: Juany Melendez Signed Date: 11/27/2024 16:00 ET Workstation ID: [id number] Transcribed By: Self Edit Transcribed Date: 11/27/2024 15:54 ET Katherine Brennan MD IMG CT PROCEDURES * Hm HIV Screening (07/10/2024) HIV Screening abstracted Historical [facility] * SCREENING MAMMOGRAPHY BI 2-VIEW BREAST INC CAD (06/29/2024 1:12 PM EDT) Anatomical Region Laterality Modality Radiographic Kristen ging 05/21/2023 12:1 9 PM EDT Narrative 07/02/2024 9:12 AM EDT This is a summary report. The complete report is available in the patient's medical record. If you cannot access the medical record, please contact the sending organization for a detailed fax or copy. Exam: Screening mammogram Findings: Digital bilateral full-field screening mammography is performed with tomosynthesis and interpreted with the aid of computer-aided detection. ??Comparison is made with 05/21/2023 and as far back as 07/11/2019. Breast parenchyma is heterogeneously dense, which may obscure small masses. ??No new suspicious mass, architectural distortion, or suspicious calcifications. Impression: No mammographic evidence of malignancy. BI-RADS 1 - negative Procedure Note Lynnette Branch MD - 09/05/2024 This is a summary report. The complete report is available in thepatient's medical record. If you cannot access the medical record, pleasecontact the sending organization for a detailed fax or copy. Exam: Screening mammogram Findings: Digital bilateral full-field screening mammography is performedwith tomosynthesis and interpreted with the aid of computer-aideddetection. Comparison is made with 05/21/2023 and as far back as07/11/2019. Breast parenchyma is heterogeneously dense, which may obscure smallmasses. No new suspicious mass, architectural distortion, or suspiciouscalcifications. Impression: No mammographic evidence of malignancy. BI-RADS 1 - negative Ricardo Cash CNM IMG XR PROCEDURES * (ABNORMAL) Lipid panel (04/04/2024) [facility] LDL/HDL Ratio 3 0 - 4 Triglycerides 95 0 - 150 mg/dL Cholesterol 229(A) 0 - 200 mg/dL HDL 79 40 mg/dL LDL Cholesterol 131(A) 0 - 100 mg/dL Blood Venous blood specimen / Unknown Historical Provider LAB BLOOD ORDERAB LES * Depression Screening (04/03/2024) [facility] Depression Screening abstracted Historical [email or web address] * Cervical Cancer Screening: HPV (06/03/2022) [facility] Cervical Cancer Screening: HPV normal, abstracted Historical [facility] * Hepatitis C Screening (08/09/2017) [facility] Hepatitis C Screening abstracted Historical [facility] * Colonoscopy (07/22/2017) [facility] Colonoscopy no interpretation , abstracted Anatomical Region Laterality Modality Other Historical Provider [facility]RA[facility] from Last 3 Months or Most Recently Relevant to Health Maintenance Advance Directives Documents on File Type Date Recorded Patient Marketing Communications Coordinator Expl anation Health Care Decision (hx) 08/05/2021 AD WYMAN DIRECTIVE Health Care Decision (hx) 08/05/2021 AD WYMAN DIRECTIVE Health Care Decision (hx) 08/05/2021 AD WYMAN DIRECTIVE Health Care Decision (hx) 08/05/2021 AD WYMAN DIRECTIVE Health Care Decision (hx) 08/05/2021 AD WYMAN DIRECTIVE Health Care Decision (hx) 08/05/2021 AD WYMAN DIRECTIVE Care Teams Seating Captain Relationship Specialty Start Date End Date Suhail Mir MD [address] [place] [phone] PCP - General Internal Medicine 05/31/17
== END 2024-12-20 11:35 | disposition home or self-care (01) ==
PROVIDERS: Visit Provider Student in an Organized Health Care Education/Training Program
DX: M35.89 Other specified systemic involvement of connective tissue (principal); R74.01 Elevation of levels of liver transaminase levels; R31.9 Hematuria, unspecified; Z79.899 Other long term (current) drug therapy
CPT/HCPCS: 99214; G2211

== ENCOUNTER → 2024-12-20 10:32 | Outpatient (BNVA) | payer OTHER, SELFPAY | PROVIDERS: Visit Provider Student in an Organized Health Care Education/Training Program | DX: M32.9 Systemic lupus erythematosus, unspecified (principal); I73.00 Raynaud's syndrome without gangrene; M35.9 Systemic involvement of connective tissue, unspecified; R74.01 Elevation of levels of liver transaminase levels; R31.9 Hematuria, unspecified; K75.4 Autoimmune hepatitis; Z79.899 Other long term (current) drug therapy | CPT/HCPCS: 99212 ==

== ENCOUNTER 2025-06-07 09:56 | Outpatient (REF) | payer OTHER, SELFPAY ==
--- OUTSIDE RECORDS SUMMARY | 2025-06-06 10:30 | XMS_ITS | Encounter Summary ---
Author Organization [facility] Address [address] [place] [address] Care Team Providers Care Wringer Machine Operator Name Role Phone Suhail Mir MD Primary Care Provider [phone] Reason for Visit * Reason Comments UTI Dark urine, lower ba ck pain Encounter Details Date Type Department Care Team (Late st Contact Info) Description 06/06/2025 10:30 AM EDT Office Visit Walk-In Clinic - [address] [phone] Kong Liao MD [address] [place] [id number] UTI symptoms (Primary Dx) Social History Tobacco Use Types Packs/Day Years Used Date Smoking Tobacco: Never Cigarettes Smokeless Tobacco: Never Alcohol Use Standard Drinks/Week Comments Yes 0 (1 standard drink = 0.6 oz pur e alcohol) Comments No Sex and Gender Information Value Date Recorded Sex Assigned at Not on file Legal Sex Female 3:59 AM EST Gender Identity Not on file Sexual Orientation Not on file documented as of this encounter Last Filed Vital Signs Vital Sign Reading Time Taken Comments Blood Pressure 120/64 06/06/2025 10:23 AM EDT Pulse 80 06/06/2025 10:23 AM EDT Temperature - - Respiratory Rate - - Oxygen Saturation 97% 06/06/2025 10:23 AM EDT Inhaled Oxygen Concentration - - Weight - - Height - - Body Mass Index - - documented in this encounter Ordered Prescriptions Prescription Sig Dispense Quantity Refills Last Filled Start Date End Date nitrofurantoin, macrocrystal-monoh ydrate, (MACROBID) 100 mg capsule Take 1 capsule (100 mg total) by mouth 2 (two) times a day for 5 days. 10 each 06/06/2025 documented in this encounter Progress Notes * Kong Liao MD - 06/06/2025 10:30 AM EDT CHIEF COMPLAINT: UTI (Dark urine, lower back pain) HPI: Adenike Kulkarni is a 59 y.o. old female who complains of dark color to her urine since yesterday. Patient denies any dysuria, urinary frequency, urinary urgency or hematuria. Patient denies any historyof back pain or kidney stones. No history of hepatitis. Denies abdominal pain. No fever or chills. Patient does concede that she does not always get enough fluid to drink. Recent weather has been hotand humid. ROS: Review of Systems Constitutional: Negative for chills and fever. Gastrointestinal: Negative for abdominal pain, diarrhea, nausea and vomiting. Genitourinary: Negative for difficulty urinating, dysuria, frequency, hematuria and urgency. Musculoskeletal: Negative for back pain. PAST MEDICAL HISTORY: Patient Active Problem List Diagnosis Date Noted Positive double stranded DNA antibody test 08/22/2024 Secondary hypercoagulable state ([facility] V24) 07/06/2023 PAF (paroxysmal atrial fibrillation) ([facility] [place]24, [facility] V28) 11/12/2022 Vitamin D deficiency 05/29/2021 BERTIN (iron deficiency anemia) 10/20/2020 COPD (chronic obstructive pulmonary disease) ([facility] V24, [facility] V28) 07/15/2017 Enlarged uterus 07/15/2017 Pulmonary nodules 07/15/2017 Eczema 05/13/2016 Cigarette smoker 03/06/2010 Past Surgical History: Procedure Laterality Date COLONOSCOPY 07/22/2017 PROCEDURE: HISTORICAL COLONOSCOPY; COMMENT: Visually normal, random biopsies obtained: All biopsiesnormal. TUBAL LIGATION PROCEDURE: HISTORICAL TUBAL LIGATION UPPER GASTROINTESTINAL ENDOSCOPY 07/22/2017 PROCEDURE: [place] UPPER GI ENDOSCOPY PERFORMED; COMMENT: Visually normal, duodenal and antral gastric biopsies obtained: All biopsies normal, no H. pylori infection. SOCIAL HISTORY: Social History Tobacco Use Smoking status: Never Smokeless tobacco: Never Substance Use Topics Alcohol use: Yes FAMILY HISTORY: Family History Problem Relation Name Age of Onset Other (Other: Lupus) Sister Other cancer Uncle ?throat cancer Breast cancer Neg Hx Colon cancer Neg Hx Ovarian cancer Neg Hx Family Status Relation Name Status Sister Alive one has lupus Uncle Alive Neg Hx (Not Specified) Mother hepatitits Father some liver issues Daughter Alive Daughter Alive Son Alive Son Alive No partnership data on file MEDICATIONS DISCONTINUED/REORDERED: There are no discontinued medications. ACTIVE MEDICATIONS: No outpatient medications have been marked as taking for the 06/06/25 encounter (Office Visit) with Kong Liao MD. ALLERGIES: Allergies Allergen Reactions Latex PHYSICAL EXAM: Vitals: 06/06/25 1023 BP: 120/64 Pulse: 80 SpO2: 97% Physical Exam Vitals reviewed. Constitutional: General: She is not in acute distress. HENT: Mouth/Throat: Mouth: Mucous membranes are moist. Abdominal: Palpations: Abdomen is soft. Tenderness: There is no abdominal tenderness. There is no right CVA tenderness or left CVA tenderness. Neurological: Mental Status: She is alert. LABS/IMAGING: Urine dipstick showed trace leukocyte esterase and 1+ nitrates. Urine dipstick was positive for protein, ketones, urobilinogen, bilirubin and red blood cells. Urine culture pending. CBCand CMP were ordered. IMPRESSION: 1. UTI symptoms PLAN: 1. Patient was advised to stay well-hydrated. Gatorade or Powerade. Urine culture is pending. Macrobid was prescribed. Due to paucity of UTI symptoms CBC and CMP will be ordered. Patient was advised to follow-up with PCP. Advised the patient to call pcp if any problems. Patient understands the plan. Patient is in agreement with the plan. Kong Liao MD on 06/06/2025 at 11:09 AM EDT Today's documentation was made using voice recognition software. This note may contain grammatical errors secondary to this software. documented in this encounter Plan of Treatment Upcoming Encounters Date Type Department Care Team (Late st Contact Info) Description 06/27/2025 2:15 PM EDT Office Visit Internal Medicine - [address] [phone] Suhail Mir MD [address] [place] [address] 07/11/2025 8:30 AM EDT Appointment Radiology Department - [address] [address] 09/26/2025 7:50 AM EST Office Visit [facility] [address] [facility] [address] [place] [address] Courtney Coelho MD [address] [facility] [address] [place] [address] Pending Results Name Type Priority Associated Diagnoses Date /Time Culture urine Microbiology Routine UTI symptoms 06/06/2025 11:23 AM EDT documented as of this encounter Procedures Procedure Name Priority Date/Time Associated Diagnosis Comments POC URINE NON-AUTO W/O MICRO Routine 06/06/2025 2:01 PM EDT UTI symptoms CBC WITH AUTO DIFFERENTIAL Routine 06/06/2025 11:23 AM EDT UTI symptoms CBC AND DIFFERENTIAL Routine 06/06/2025 11:23 AM EDT UTI symptoms COMPREHENSIVE METABOLIC PANEL Routine 06/06/2025 11:23 AM EDT UTI symptoms documented in this encounter Results * (ABNORMAL) POC Urine Non-Auto W/O Micro (06/06/2025 2:01 PM EDT) GLUCOSE POC Negative Negative, Trace mg/dL Leukocytes UA POC 1+(A) Negative mg/dL Nitrite UA POC Positive Urobilinogen UA POC 1.0 E.U./dL mg/dL Protein UA POC Positive Positive, Negative PH UA POC 5.0 WAQAS/HM UA POC 250(A) Negative Specific [place] UA POC 1.025 Ketones UA POC 1+(A) Negative Bilirubin UA POC 2+(A) Negative Urine Urine specimen obtained by clean catch procedure / Unknown 06/06/2025 2:01 PM EDT Kong Liao MD POINT OF CARE TEST ENTER/EDIT OR DERABLES Final Result * (ABNORMAL) CBC auto differential (06/06/2025 11:23 AM EDT) [facility] Signature WBC 3.5(L) 4.8 - 10.8 K/mcL LAB HEMETOLOGY METHOD 06/06/2025 7:38 PM EDT [facility] RBC 4.70 3.80 - 4.80 M/mcL LAB HEMETOLOGY METHOD 06/06/2025 7:38 PM EDT [facility] Hemoglobin 13.4 11.5 - 16.0 g/dL LAB HEMETOLOGY METHOD [facility] Hematocrit 42.7 35.0 - 47.0 % LAB HEMETOLOGY METHOD 06/06/2025 7:38 PM EDT [facility] MCV 91.2 79.0 - 98.0 FL LAB HEMETOLOGY METHOD 06/06/2025 7:38 PM EDT [facility] MCH 28.6 27.0 - 32.0 pcg LAB HEMETOLOGY METHOD 06/06/2025 7:38 PM [facility] MCHC 31.4(L) 32.0 - 37.0 g/dL LAB HEMETOLOGY METHOD 06/06/2025 7:38 PM EDT [facility] RDW 15.1(H) 11.0 - 15.0 % LAB HEMETOLOGY METHOD 06/06/2025 7:38 PM EDT [facility] Platelets 253 130 - 400 K/mcL LAB HEMETOLOGY METHOD 06/06[facility]2025 7[facility] MPV 10.5 7.0 - 11.0 FL LAB HEMETOLOGY METHOD 06/06/2025 7:38 PM EDT [facility] NRBC 0.0 <1.0 % LAB HEMETOLOGY METHOD 06/06/2025 7:38 PM EDT [facility] NRBC Absolute 0.00 <0.10 K/mcL LAB HEMETOLOGY METHOD 06/06[facility]2025 7[facility] Neutrophils Relative 42.4 % LAB HEMETOLOGY METHOD 06/06[facility]25 7[facility] Lymphocytes Relative 41.2 % LAB HEMETOLOGY METHOD 06/06/2025 7:38 PM EDT [facility] Monocytes Relative 13.5 % LAB HEMETOLOGY METHOD 06/06[facility]2025 7[facility] Eosinophils Relative 1.4 % LAB HEMETOLOGY METHOD 06/06[facility]2025 7[facility] Basophils Relative 1.2 % LAB HEMETOLOGY METHOD 06/06/2025 7:38 PM [facility] Immature Granulocytes Relative 0.3 % LAB HEMETOLOGY METHOD 06/06/2025 7:38 PM [facility] Neutrophils Absolute 1.47(L) 1.50 - 7.00 K/mcL LAB HEMETOLOGY METHOD 06/06/2025 7:38 PM [facility] Lymphocytes Absolute 1.43 1.00 - 5.00 K/mcL LAB HEMETOLOGY METHOD 06/06/2025 7:38 PM EDT [facility] Monocytes Absolute 0.47 0.20 - 1.00 K/mcL LAB HEMETOLOGY METHOD 06/06/2025 7:38 PM EDT [facility] Eosinophils Absolute 0.05 0.00 - 0.50 K/mcL LAB HEMETOLOGY METHOD 06/06/2025 7:38 PM [facility] Basophils Absolute 0.04 0.00 - 0.20 K/mcL LAB HEMETOLOGY METHOD 06/06/2025 7:38 PM [facility] Immature Granulocytes Absolute 0.01 0.00 - 0.03 K/mcL LAB HEMETOLOGY METHOD 06/06/2025 7:38 PM [facility] Blood Venous blood specimen / Unknown Venipuncture / Unknown 06/06/2025 11:23 AM EDT 06/06/2025 11:23 AM EDT us Kong Liao MD LAB BLOOD ORDERABLES Final Resul t [facility] [address] [place] [address], * (ABNORMAL) Comprehensive metabolic panel (06/06/2025 11:23 AM EDT) Sodium 137 133 - 145 mmol/L LAB CHEMISTRY METHOD 06/06/2025 8:21 PM [facility] Potassium 4.4 3.5 - 5.5 mmol/L LAB CHEMISTRY METHOD 06/06/2025 8:21 PM [facility] Chloride 103 96 - 110 mmol/L LAB CHEMISTRY METHOD 06/06/2025 8:21 PM [facility] CO2 30 21 - 32 mmol/L LAB CHEMISTRY METHOD 06/06/2025 8:21 PM [facility] Anion Gap 4 3 - 11 LAB CHEMISTRY METHOD 06/06/2025 8:21 PM [facility] Glucose 80 70 - 100 mg/dL LAB CHEMISTRY METHOD 06/06/2025 8:21 PM [facility] BUN 8 5 - 25 mg/dL LAB CHEMISTRY METHOD 06/06/2025 8:21 PM [facility] Creatinine 0.68 0.50 - 1.10 mg/dL LAB CHEMISTRY METHOD 06/06/2025 8:21 PM [facility] eGFR 101 >=60 mL/min/1. 73m2 LAB CHEMISTRY METHOD 06/06/2025 8:21 PM [facility] Comment:Calculation based on the Chronic Kidney Disease Epidemiology Collaboration (CKD-EPI) equation refit without adjustment for race. BUN/Creatinine Ratio 11.8 LAB CHEMISTRY METHOD 06/06/2025 8:21 PM [facility] Calcium 9.2 8.5 - 10.5 mg/dL LAB CHEMISTRY METHOD 06/06/2025 8:21 PM [facility] AST (SGOT) 74(H) 10 - 42 unit/L LAB CHEMISTRY METHOD 06/06/2025 8:21 PM [facility] ALT (SGPT) 78(H) 10 - 60 unit/L LAB CHEMISTRY METHOD 06/06/2025 8:21 PM [facility] Alkaline Phosphatase 90 42 - 121 unit/L LAB CHEMISTRY METHOD 06/06/2025 8:21 PM [facility] Total Protein 7.3 6.0 - 8.0 g/dL LAB CHEMISTRY METHOD 06/06/2025 8:21 PM [facility] Albumin 4.0 3.2 - 5.0 g/dL LAB CHEMISTRY METHOD 06/06/2025 8:21 PM [facility] Total Bilirubin 1.0 0.0 - 1.4 mg/dL LAB CHEMISTRY METHOD 06/06/2025 8:21 PM [facility] Blood Venous blood specimen / Unknown Venipuncture / Unknown 06/06/2025 11:23 AM EDT 06/06/2025 11:23 AM EDT us Kong Liao MD LAB BLOOD ORDERABLES Final Resul t [facility] [address] [place] [address], documented in this encounter Visit Diagnoses Diagnosis UTI symptoms- Primary Encounter for screening mammogram for breast cancer documented in this encounter Care Teams Wringer Machine Operator Relationship Specialty Start Date End Date Suhail Mir MD [address] [place] [address] PCP - General Internal Medicine 05/31/17 documented as of this encounter
[2025-06-07 10:15] LABS: MANUAL DIFF FLAG NO
--- OUTSIDE RECORDS SUMMARY | 2025-06-07 10:15 | XMS_ITS | Clinical Summary ---
Author Organization [facility] Address [address] [place], [place] [id number] Phone Care Team Providers Care Measurer Machine Name Role Phone Suhail Mir MD Primary Care Provider [phone] Allergies No known active allergies Medications albuterol 90 mcg/actuation inhaler Inhale 2 puffs into the lungs every 4 (four) hours as needed. 07/17/2024 Active apixaban (ELIQUIS) 5 mg tablet Take 5 mg by mouth 2 (two) times a day. 10/17/2023 Active cetirizine (ZYRTEC) 10 MG tablet Take 10 mg by mouth daily. Active cholecalciferol (VITAMIN D3) 2,000 unit tablet Take 2,000 Units by mouth daily. 07/31/2024 Active cyanocobalamin, vitamin B-12, 1000 MCG tablet Take 1,000 mcg by mouth daily. Active ergocalciferol (DRISDOL) 50,000 unit capsule Take 50,000 Units by mouth once a week. 04/05/2024 Active metoprolol tartrate (LOPRESSOR) 25 MG tablet Take 25 mg by mouth 2 (two) times a day. 04/03/2024 Active omeprazole (PRILOSEC) 20 MG capsule Take 1 capsule by mouth daily. 07/31/2024 Active Family History Medical History Relation Comments Lupus Sister Relation Status Comments Sister Social History Tobacco Use Types Packs/Day Years Used Date Smoking Tobacco: Never Assessed Education Answer Date Recorded Are you interested in more education? Not on kam e 10/26/2024 Are you concerned about learning? Not on file 10/26/2024 No 10/26/2024 No 10/26/2024 Digital Access Answer Date Recorded No 10/26/2024 No 10/26/2024 Reliable internet access at home? Not on file 10/26/2024 Device with a working camera? Not on file Comments Unknown Sex and Gender Information Value Date Recorded Sex Assigned at Not on file Legal Sex Female 12:19 PM EST Gender Identity Not on file Sexual Orientation Not on file Plan of Treatment Health Maintenance Due Date Last Done Comments CREATININE LEVEL 1966 DEPRESSION SCREENING 1978 SMOKING Hx and SMOKELESS TOB ACCO SCREENING 1979 HEPATITIS C SCREENING 1984 HIV ONE-TIME SCREENING (18-6 5 YEARS) 1984 PAP SMEAR 1987 MAMMOGRAM 2006 COLOGUARD 2011 COLONOSCOPY 2011 COLORECTAL CANCER SCREENING 2011 FIT TEST 2011 FOBT 2011 SIGMOIDOSCOPY 2011 VIRTUAL COLONOSCOPY 2011 PNEUMOCOCCAL VACCINES (50+ y ears) (1 of 1 - PCV) 2016 ZOSTER VACCINES (1 of 2) 2016 Adult Td,Tdap Booster 03/27/2024 03/27/2014 COVID-19 VACCINE (1 - 2023-2 5 season) 2024 LIPID PANEL 04/04/2029 04/04/2024 HEPATITIS A VACCINES Aged Out No long er eligible based on patient's age to complete this topic HIB VACCINES Aged Out No longer eligi ble based on patient's age to complete this topic MENINGOCOCCAL VACCINES (ACWY) Aged Out No longer eligible based on patient's age to complete this topic MENINGOCOCCAL VACCINES (B) Aged Out N o longer eligible based on patient's age to complete this topic Medical Devices Not on file Insurance [facility] NON NSPG PCP [employer] NON NSPG PCP [employer] Member Subscriber Plan / Payer (Ef fective 2023-Present) Name:Adenike Kulkarni Relation to Subscriber:Self Name:Adenike Kulkarni Payer ID:[id number] Type:HMO Address: [place] [id number] [employer] NON NSPG PCP [employer] NON NSPG PCP [employer] NON NSPG PCP [employer] WE[employer] NON NSPG PCP [employer] Care Teams Measurer Machine Relationship Specialty Start Date End Date Suhail Mir MD [address] [place] [id number] PCP - General Internal Medicine 10/26/24 Additional Source Comments The information contained in this document represents components of the legal health record. It is not the complete legal health record.[facility]
--- OUTSIDE RECORDS SUMMARY | 2025-06-07 10:15 | XMS_ITS | Clinical Summary ---
Author Organization [facility] Address [address] [place] [address] Care Team Providers Care Teller Coordinator Name Role Phone Suhail Mir MD Primary Care Provider [phone] Allergies No known active allergies Medications Medication Sig Dispensed Refills Start Date End Date Status omeprazole (PriLOSEC) 20 MG capsule Take 1 capsule (20 mg total) by mouth daily. 0 Active ergocalciferol (VITAMIN D2) capsule 60690 units Take 1 capsule (50,000 Units total) [...] 90 09/04/2024 11:46 AM EDT Temperature 36.4 C (97.6 F) 09/04/2024 11:46 AM EDT Respiratory Rate - - Oxygen [...] or Tdap) 03/27/2024 03/27/2014 Influenza Vaccine (#1) 2025 2, 10/14/2020, 07/29/2017 RSV Ped < 20 months Aged Out No longe r eligible based on patient's age to complete this topic Care Teams Teller Coordinator Relationship Specialty Start Date End Date Suhail Mir MD [address] [place] [id number] PCP - General Internal Medicine 07/17/24
[2025-06-07 10:28] LABS: Hematocrit 40.7 % (37.0-47.0); Hemoglobin 13.6 g/dl (12.0-16.0); Imm Gran Abs Auto 0.01 X10*3/uL (0.00-0.03); Imm Gran Pct Auto 0.3 % (0.0-0.4); Lymphocytes Absolute Auto 1.2 X10*3/uL (1.2-4.9); Mean Corpuscular HGB Conc 33.4 g/dl (31.0-35.0); Mean Corpuscular Hemoglobin 29.3 pg (27.0-33.0); Mean Corpuscular Volume 87.7 fL (80.0-98.0); NRBC Abs Auto 0.000 X10*3/uL (0.0-0.012); NRBC Pct Auto 0.0 /100WBC (0.0-0.2); Platelet Count 244 X10*3/uL (160-400); Red Blood Count 4.64 X10*6/uL (4.20-5.50); White Blood Count 3.3 X10*3/uL (4.8-10.8)
[2025-06-07 11:26] LABS: Alanine Aminotransferase 67 U/L (0-31); Albumin Level 4.4 g/dL (3.5-5.0); Alkaline Phosphatase 83 U/L (39-117); Anion Gap 12 (12-20); Aspartate Amino Transferase 62 U/L (5-31); Blood Urea Nitrogen 5 mg/dL (9-16); Calcium 8.8 mg/dL (8.4-10.2); Carbon Dioxide 29 mmol/L (22-29); Chloride 105 mmol/L (96-108); Estimated Glomerular Filt Rate > 60; Potassium 3.6 mmol/L (3.3-5.1); Sodium 142 mmol/L (135-145); Total Protein 7.4 g/dL (6.5-8.0)
[2025-06-07 11:43] LABS: Appearance Urine Clear; Glucose Urine UA Negative (Negative); PH 6.0 (5.0-9.0); Specific Gravity - Urine <= 1.005 (1.005-1.025); UMIC TRIGGER UA YES
[2025-06-07 12:00] LABS: Total Protein Urine Random < 7 mg/dL (<12)
[2025-06-12 18:14] LABS: Liver Kidney Microsomal Ab <=20.0 U (<=20.0); Proteinase 3 PR3 Antibodies <1.0 AI
== END 2025-06-07 09:57 | disposition home or self-care (01) ==
LOC: HO.LAB 09:56
PROVIDERS: Visit Provider Student in an Organized Health Care Education/Training Program
DX: K75.4 Autoimmune hepatitis (principal); M35.9 Systemic involvement of connective tissue, unspecified
CPT/HCPCS: 36415; 80053; 81001; 82570; 84156; 85025; 85652; 86015; 86021; 86140; 86160; 86225; 86376; 86381

== ENCOUNTER 2025-06-13 09:09 | Outpatient (AMB) | payer OTHER, SELFPAY ==
[2025-06-13 09:37] VITALS: BP 124/74; PULSE 76; O2SAT 99; BMI 20.6
--- NOTE | 2025-06-13 09:37 | A.OFFVIS_ITS ---
Vital Signs 06/13/25 09:37 Height 5 ft 5 in Weight 123 lb 14.397 oz BMI 20.6 BP 124/74 Blood Pressure Location Lt brachial Position Sitting Pulse 76 Pulse Source Pulse Oximeter Pulse Oximetry (%) 99 Oxygen Delivery Method Room Air Intake Visit Reasons: SLE Intake Note: Patient last seen by Doctor Virginia Multani on 12/20/24. Presents today for SLE follow up and test results. Allergies No Known Allergies Allergy (Verified 12/20/24 10:57) Medication List - Last Reconciled 06/13/25 by Virginia Multani MD albuterol sulfate 90 mcg/actuation (Ventolin HFA) inhalation apixaban (Eliquis) 5 mg PO BID hydroxychloroquine (Plaquenil) 200 mg PO DAILY metoprolol tartrate 25 mg PO BID mometasone 0.1% 0 appl topical HPI Comments Details: Patient is a 59 y.o. female smoker (88 pack year) with Afib on Eliquis and UCTD who presents for follow up Interval History: Patient last seen 12/20/2024 with me - Diagnosed with UCTD based on MARTINEZ 1:320/+dsDNA, polyarthralgias - Started on plaquenil Today - Doing well on plaquenil Rheumatologic History: Diagnosed with UCTD based on MARTINEZ 1:320/+dsDNA, polyarthralgias Initial history: About 2 years ago she started to notice pins and needles affecting just her feet. 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 The sensation would occur every day. Improved with movement of the feet. Had EMG done which she was told was normal. Then 6 months ago she started noticing black stools. Fecal occult was positive for blood and so she was sent to GI and had a colonoscopy as well as Urology to evaluate her bladder. All testing was unremarkable. GI did not attribute the Eliquis with her black stools. 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 Denies photosensitivity, alopecia, oral/nasal ulcers, sicca symptoms, lymphadenopathy, chest pain/shortness of breath, inflammatory type joint pain, foamy urine, lower extremity edema, muscle weakness, Raynaud's Also denies history of seizure, CVA, psychosis, history of kidney problems, hist ory of cytopenias, history of VTE including PE or DVTs OB History: +1 (miscarriage at 1-2 months) No hx of pre-eclampsia No hx of placental insufficiency Strong family history of lupus on maternal side: sister, aunt, cousin, another aunt who from lupus Current Rheumatology Medication(s): Hydroxychloroquine 200mg daily [facility] Medical History (Updated 06/13/25 @ 10:07 by Virginia Multani MD) Hematuria Transaminitis Long-term use of Plaquenil Undifferentiated connective tissue disease Positive MARTINEZ (antinuclear antibody) Family History Sister Lupus (systemic lupus erythematosus) Social History Household Members: None Housing: Apartment Alcohol intake: current Patient Tobacco Use Status: Current someday Tobacco user Tobacco use type: Cigarette Cigarette Packs Per Day: 0.5 Years Smoked: 40 Review of Systems Const Details: Review of Systems Constitutional: Denies fever, chills, weight loss ENT: Denies vision changes, eye pain or eye redness, dental caries, dry mouth GI: Denies nausea, vomiting, diarrhea, abdominal pain, change in BM Pulm: Denies SOB, LUNA, hemoptysis, wheezing Cards: Denies chest pain, palpitations Skin: Denies Raynaud's, nail changes, photosensitivity, CENTRAL SUPPLY CLERK: Denies headaches, weakness, paresthesias, recurrent falls MSK: as per HPI All other systems reviewed and are unremarkable except noted above Physical Exam Exam Exam: Vital signs reviewed Physical Examination CONSTITUITIONAL Patient alert and cooperative. Well appearing and in no apparent painful distress HEENT Conjunctiva and sclera clear. No lymphadenopathy. CHEST/RESPIRATORY SYSTEM Normal respiratory effort and able to speak in complete sentences. Clear to auscultation bilaterally. No crackles, rales, rhonchi, wheezes heard. CARDIAC SYSTEM Regular rate and rhythm. S1 and S2 heard no murmurs. Radial pulses intact bilaterally MSK Hands * Right Hand: Able to make a fist. No swelling or tenderness to palpation of these joints. No deformities noted. * Left Hand: Able to make a fist. No swelling or tenderness to palpation of these joints. No deformities noted. Wrists * Right Wrist: Full ROM. 70 degrees of wrist flexion, 80 degrees of wrist extension. No swelling or TTP * Left Wrist: Full ROM. 70 degrees of wrist flexion, 80 degrees of wrist extension. No swelling or TTP Elbows * Right Elbow: Full ROM. No swelling or TTP. No TTP of the medial and lateral epicondyles * Left Elbow: Full ROM. No swelling or TTP. No TTP of the medial and lateral epicondyles Shoulders * Right shoulder: Full ROM. No swelling noted. No TTP of the AC joint, subacromial bursa or posterior shoulder * Left shoulder: Full ROM. No swelling noted. No TTP of the AC joint, subacromial bursa or posterior shoulder Knees * Right knee: Full ROM. No swelling noted. No TTP of the knee joint lie or pes anserine bursa * Left knee: Full ROM. No swelling noted. No TTP of the knee joint lie or pes anserine bursa. Ankles * Right ankle: Good ankle dorsiflexion and plantar flexion. No swelling. No TTP of the ankle joint * Left ankle: Good ankle dorsiflexion and plantar flexion. No swelling. No TTP of the ankle joint Feet * Right foot: Negative squeeze test * Left foot: Negative squeeze test Tender points? * No tenderness to palpation of the bilateral trapezius, supraspinatus, anterior costochondral junctions, bilateral suboccipital muscle insertions SKIN Blossom occular hyperpigmentation Vital Signs: Last Vital Signs Pulse 76 06/13/25 09:37 BP 124/74 06/13/25 09:37 Pulse Ox 99 06/13/25 09:37 Oxygen Delivery Method Room Air 06/13/25 09:37 BMI result Body Mass Index 20.6 Results Reviewed Results Reviewed: Laboratory Tests 11/28/24 06/07/25 09:54 10:13 WBC 3.3 L RBC 4.64 Hgb 13.6 Hct 40.7 Plt Count 244 ESR 2 Sodium 142 Potassium 3.6 D Chloride 105 Carbon Dioxide 29 BUN 5 L Creatinine 0.61 AST 45 H 62 H ALT 69 H 67 H C-Reactive Protein < 0.10 Laboratory Tests 11/28/24 09:54 MARTINEZ Screen POSITIVE A MARTINEZ Titer 1:320 H MARTINEZ Pattern Nuclear, Homogeneous A Double Strand DNA Ab 5 H Anti-ds DNA Titer (Crith) 1:40 H Anti-ds DNA (Crithidia) Positive A Complement C3 115 Complement C4 29 Laboratory Tests 11/28/24 09:54 Lupus Anticoag Interp positive Beta-2-GPI IgG Ab <2.0 Beta-2-GPI IgA Ab 2.4 Beta-2-GPI IgM Ab 3.7 Anti-Cardiolipin IgG Ab <2.0 Anti-Cardiolipin IgM Ab 5.5 Laboratory Tests 06/07/25 10:13 Double Strand DNA Ab 4 Complement C3 102 Complement C4 24 Assessment & Plan Assessment & Plan (1) Undifferentiated connective tissue disease: Comment: - Diagnosed with UCTD based on MARTINEZ 1:320/+dsDNA, polyarthralgias - Started on plaquenil 01/2025 with normalization of dsDNA Code(s): M35.9 - Systemic involvement of connective tissue, unspecified Category: Medical Plan: #Undiffentiated connective tissue disease Patient is a 59-year-old female with UCTD here today for follow up Doing well on plaquenil DsDNA now normal compared to last check Plan - Plaquenil 200mg daily - Ophthal referral - RTC 6 months - Labs before next visit: CBC, CMP, ESR, CRP, C3, C4, UA, UPC, LA (2) Transaminitis: Code(s): R74.01 - Elevation of levels of liver transaminase levels Category: Medical Plan: #Transaminitis Worsening AST/ALT. It is possible that she may have fatty liver disease or she may have a component of autoimmune hepatitis. Plan - Check US Abd with elastography - follow up autoimmune hepatitis labs (3) Hematuria: Code(s): R31.9 - Hematuria, unspecified Category: Medical Qualifiers: Hematuria type: unspecified type Qualified Code(s): R31.9 - Hematuria, unspecified Plan: #Hematuria Improved! No RBCs noted ?because of the plaquenil (4) Long-term use of Plaquenil: Code(s): Z79.899 - Other care home (current) drug therapy Category: Medical Plan: #Long-term Use of Hydroxychloroquine Discussed with patient the risks and benefits of hydroxychloroquine in managing the rheumatic condition Benefits include: - Reduced pain, reduce mortality, maintenance of remission and reduction of flares Risks include: - GI upset, skin hyperpigmentation, retinal toxicity (especially after more than 5 years of use), myopathy Advised yearly ophthalmology visits Referral placed Plan I spent 30 minutes reviewing the record and labs, taking a history, examining the patient, discussing the treatment plan and documenting in the medical record Orders: Orders Anti DNA DS Antibody Today M35.9 - Systemic involvement of connective tissue, unspecified Complement C4 Today M35.9 - Systemic involvement of connective tissue, unspe cified Complete Blood Count Auto Diff Today M35.9 - Systemic involvement of connective tissue, unspecified Comprehensive Met. Panel Today M35.9 - Systemic involvement of connective tissue, unspecified C Reactive Protein Today M35.9 - Systemic involvement of connective tissue, unspecified Erythrocyte Sedimentation Rate Today M35.9 - Systemic involvement of connective tissue, unspecified UA w Microscopic Today M35.9 - Systemic involvement of connective tissue, un specified US abdomen comp w elastography Today R74.01 - Elevation of levels of liver transaminase levels Complement C3 Today M35.9 - Systemic involvement of connective tissue, unspecified Protein Creatinine Ratio, Ur Today M35.9 - Systemic involvement of connective tissue, unspecified Vitamin D 25-OH Total Today M35.9 - Systemic involvement of connective tissue, unspecified Lupus Anticoagulant Panel Today D68.61 - Antiphospholipid syndrome, M35.9 - Systemic involvement of connective tissue, unspecified Medications: Refilled hydroxychloroquine (Plaquenil) 200 mg PO DAILY 90 tabs 1RF M35.9 - Systemic involvement of connective tissue, unspecified Coding Level of Care Code Est Pt Level 4 (07635) Complex EM visit Add On G2211 Diagnoses Undifferentiated connective tissue disease M35.9 Transaminitis R74.01 Hematuria, unspecified type R31.9 Hematuria type: unspecified type Long-term use of Plaquenil Z79.899
--- OUTSIDE RECORDS SUMMARY | 2025-06-13 09:38 | XMS_ITS | Encounter Summary ---
Author Organization [facility] Address [address] [place] [address] Care Team Providers Care Rotary Envelope Machine Operator Name Role Phone Suhail Mir MD Primary Care Provider [phone] Encounter Details Date Type Department Care Team Description 09/03/2020 Orders Only Radiology - [address] [address] Suhail Mir MD [address] [place] [id number] Social History Tobacco Use Types Packs/Day Years Used Date Smoking Tobacco: Every Day Cigarettes 0.5 32 Smokeless Tobacco: Never Comments:1 pack Alcohol Use Standard Drinks/Week Comments Yes 0 (1 standard drink = 0.6 oz pur e alcohol) 4-5 glasses wine every day Sex Assigned at Date Recorded Not on file Job Start Date Occupation Industry Not on file Not on file Not on file documented as of this encounter Plan of Treatment Not on file documented as of this encounter Visit Diagnoses Not on filedocumented in this encounter Care Teams Rotary Envelope Machine Operator Relationship Specialty Start Date End Date Suhail Mir MD [address] [place] [address] [id number] PCP - General Internal Medicine 05/31/17 documented as of this encounter
--- OUTSIDE RECORDS SUMMARY | 2025-06-13 09:39 | XMS_ITS | Clinical Summary ---
Author Organization [facility] Address [address] [place] [address] Care Team Providers Care Aircraft Instrument Engineer Name Role Phone Suhail Mir MD Primary Care Provider [phone] Allergies No known active allergies Medications Medication Sig Dispensed Refills Start Date End Date Status omeprazole (PriLOSEC) 20 MG capsule Take 1 capsule (20 mg total) by mouth daily. 0 Active ergocalciferol (VITAMIN D2) capsule 68485 units Take 1 capsule (50,000 Units total) [...] age to complete this topic Care Teams Aircraft Instrument Engineer Relationship Specialty Start Date End Date Suhail Mir MD [address] [place] [id number] PCP - General Internal Medicine 07/17/24
--- OUTSIDE RECORDS SUMMARY | 2025-06-13 09:39 | XMS_ITS | Clinical Summary ---
Author Organization [facility] Address [address] [place], [place] [id number] Phone Care Team Providers Care Yarn Dry Room Worker Name Role Phone Suhail Mir MD Primary Care Provider [phone] Allergies No known active allergies Medications albuterol [...] topic Medical Devices Not on file Insurance [facility] NON NSPG PCP [employer]AKILA [employer]ANG [employer] NON NSPG PCP [employer] Member Subscriber Plan / Payer (Ef fective 2023-Present) Name:Adenike Kulkarni Relation to Subscriber:Self Name:Adenike Kulkarni Payer ID:[id number] Type:HMO Address: [place] [id number] [employer] NON NSPG PCP [employer] NON NSPG PCP [employer] NON NSPG PCP [employer] NON NSPG PCP [employer] Care Teams Yarn Dry Room Worker Relationship Specialty Start Date End Date Suhail Mir MD [address] [place] [id number] PCP - General Internal Medicine 10/26/24 Additional Source Comments The information contained in this document represents components of the legal health record. It is not the complete legal health record.[facility]
--- OUTSIDE RECORDS SUMMARY | 2025-06-13 09:39 | XMS_ITS | Clinical Summary ---
Author Organization [facility] Address [address] [place] [address] Phone Care Team Providers Care Mushroom Sorter Grader Name Role Phone Suhail Mir MD Primary Care Provider [phone] Allergies Active Allergy Reactions Criticality Noted Date Comments Latex 10/11/2024 Medications apixaban (Eliquis) 5 mg tablet Take 5 mg by mouth every 12 hours. 10/17/20 23 Active cetirizine (ZyrTEC) 10 mg tablet Take 1 Tab by mouth daily for 180 days. 10/14/20 20 Active metoprolol tartrate (LOPRESSOR) 25 mg tablet Take 1 Tablet by mouth 2 times daily for 180 days. 04/03/20 24 Active omeprazole (PriLOSEC) [address] capsule Take 1 Capsule by mouth daily. Active mometasone (ELOCON) 0.1 % cream Apply topically 1 (one) time each day for 21 days. 45 g 1 10/01/20 24 Active polyethylene glycol (Golytely) 236-22.74-6.74 -5.86 gram solution Take 4L by mouth once for one dose. May substitue any PEG. Starting at 6PM the night before your procedure drink 1 8oz glasses at your own pace until you complete half of the gallon. Finish 2nd half of the gallon 5 hours before your procedure. 4000 mL 10/03/20 24 Active bisacodyL (DULCOLAX) 5 mg EC tablet Take 2 tablets by mouth right before beginning bowel prep. See instructions provided by the office 2 tablet 10/03/20 24 Active polyethylene glycol 400 (Visine Dry Eye Relief) 1 % drops Administer into affected eye(s). Active cyanocobalamin (VITAMIN B-12) 1,000 mcg tablet Take 0.5 tablets (500 mcg total) by mouth 1 (one) time each day. Active ferrous sulfate 325 mg (65 mg elemental iron) tablet Take 1 tablet (325 mg total) by mouth every other day. Active cholecalcifero l (VITAMIN D-3) 50 mcg (2,000 unit) tablet Take 1 tablet (2,000 Units total) by mouth 1 (one) time each day. Take 1 Tablet by mouth daily. 90 tablet 1 02/12/20 25 Active polyethylene glycol (Golytely) 236-22.74-6.74 -5.86 gram solution Take 4L by mouth once for one dose. May substitue any PEG. Starting at 6PM the night before your procedure drink 1 8oz glasses at your own pace until you complete half of the gallon. Finish 2nd half of the gallon 5 hours before your procedure. 4000 mL 03/01/20 25 Active bisacodyL (DULCOLAX) 5 mg EC tablet Take 2 tablets by mouth right before beginning bowel prep. See instructions provided by the office 2 tablet 03/01/20 25 Active Ventolin HFA 90 mcg/actuation inhaler INHALE 2 PUFFS EVERY 4 HOURS NEEDED FOR COUGH, WHEEZING OR FOR SHORTNESS OF BREATH 18 g 2 05/27/20 25 Active Ventolin HFA 90 mcg/actuation inhaler INHALE 2 PUFFS BY MOUTH EVERY 4 HOURS NEEDED FOR COUGH, WHEEZING OR FOR SHORTNESS OF BREATH 18 g 1 01/14/20 25 025 Discontinued nitrofurantoin , macrocrystal-m onohydrate, (MACROBID) 100 mg capsule Take 1 capsule (100 mg total) by mouth 2 (two) times a day for 5 days. 10 each 06/06/20 25 025 Active Problems Problem Noted Date Diagnosed Date Positive double stranded DNA antibody test 08/22 Assessment & Plan (02/11/2025 10:33 AM EDT): Monitored by rheumatology. Assessment & Plan (10/01/2024 1:56 PM EST): Referral to rheumatology has been placed for double-stranded DNA positive. I have also placed referral to dermatology for skin check. Orders: Ambulatory referral to Rheumatology; Future Ambulatory referral to Dermatology; Future Secondary hypercoagulable state ([facility] [place] PAF (paroxysmal atrial fibri llation) ([facility] V24, [facility] V28) 11/12/2022 Assessment & Plan (02/11/2025 10:33 AM EDT): She has been not fully compliant with her metoprolol and apixaban. Explained to her the importance of taking this medication and the risk of stroke. Continue metoprolol and apixaban. Referral to cardiology placed. Orders: Ambulatory referral to Cardiology; Future Vitamin D deficiency 05/29/2021 Assessment & Plan (02/11/2025 10:33 AM EDT): Continue vitamin D supplementation. BERTIN (iron deficiency anemia) 10/20/2020 COPD (chronic obstructive pu lmonary disease) ([facility] [place], [facility] [place]28) 07/15/2017 Assessment & Plan (02/11/2025 10:33 AM EDT): Continue ventolin. Smoking cessation counseling done. Enlarged uterus 07/15/2017 Pulmonary nodules 07/15/2017 Overview [...] Encounters Date Type Department Care Team Description 06/06/2025 10:30 AM EDT Office Visit Walk-In Clinic - [address] [place] [phone] Kong Liao MD UTI symptoms (Primary Dx) 06/06/2025 Telephone Internal Medicine - [address] [place] [phone] Suhail Mir MD urine issue from Last 3 Months Immunizations Name Administration [...] biopsies normal. UPPER GASTROINTESTINAL ENDOSCOPY 07/22/2017 PROCEDURE: MT UPPER GI ENDOSCOPY PERFORMED; COMMENT: Visually normal, duodenal and antral gastric biopsies obtained: All biopsies normal, no H. pylori infection. Medical History Medical History Date Comments Eczema 05/13/2016 DX:Eczema Cigarette smoker 03/06/2010 DX:Cigarette sm oker COPD (chronic obstructive pu lmonary disease) ([facility]/HCC V24, [facility]/HCC V28) 07/15/2017 DX:COPD (chronic o bstructive pulmonary disease) ([facility]) Enlarged uterus 07/15/2017 DX:Enlarged uter us Pancreatic [...] on file Sexual Orientation Not on file Obstetrics History Last Filed Vital Signs Vital Sign Reading Time Taken Comments Blood Pressure 120/64 06/06/2025 10:23 AM EDT Pulse 80 06/06/2025 10:23 AM EDT Temperature - - Respiratory Rate - - Oxygen Saturation 97% 06/06/2025 10:23 AM EDT Inhaled Oxygen Concentration - - Weight 58.2 kg (128 lb 3.2 oz) 02/11/2025 9:46 A M EDT Height 165.1 cm (5' 5 ) 02/11/2025 9:46 AM EDT Body Mass Index 21.33 02/11/2025 9:46 AM EDT Plan of Treatment Upcoming Encounters Date Type Department Care Team (Late st Contact Info) Description 06/27/2025 2:15 PM EDT Office Visit Internal Medicine - [address] [phone] Suhail Mir MD [address] [place] [phone] 07/11/2025 8:30 AM EDT Appointment Radiology Department - [address] [phone] 09/26/2025 7:50 AM EST Office Visit [facility] [address] [facility] [address] [place] [phone] Courtney Coelho MD [address] [facility] [address] [place] [address] Health Maintenance Due Date Last Done Comments Hepatitis A Vaccines (1 of 2 - Risk 2-dose series) 1985 Hepatitis B Vaccines (1 of 3 - 19+ 3-dose series) 1985 Zoster Vaccines (1 of 2) 1985 Pneumococcal Vaccine: 50+ Years (2 of 2 - PCV) 10/19/2018 10/19/2017 COVID-19 Vaccine (3 - Pfizer risk series) 05/01/2021 04/03/2021, 03/14/2021 Colorectal Cancer Screening: Stool Based Tests (FOBT/FIT) 2022 Social Influencers of Health Screening 2022 DTaP,Tdap,and Td Vaccines (2 - Td or Tdap) 03/27/2024 03/27/2014 Depression Screening 11/21/2024 04/03/2024 Influenza Vaccine (#1) 2025 , 10/14/2020, 07/29/2017 Breast Cancer Screening 06/29/2026 06/29/20, 06/29/2024, 05/21/2023, [...] patient's age to complete this topic Meningococcal B Vaccine Aged Out No l onger eligible based on patient's age to complete [...] Routine 06/06/2025 11:23 AM EDT UTI symptoms CULTURE URINE Routine 06/06/2025 11:23 AM EDT UTI symptoms HM HIV SCREENING Routine 07/10/2024 SCREENING MAMMOGRAPHY BI 2-VIEW BREAST INC CAD Routine 06/29/2024 1:12 PM EDT Encounter for screening mammogram for malignant neoplasm of breast LIPID PANEL Routine 04/04/2024 HM DEPRESSION SCREENING Routine 04/03/2024 HPV Routine 06/03/2022 HEPATITIS C SCREENING Routine 08/09/2017 COLONOSCOPY Routine 07/22/2017 from Last 3 Months or Most Recently Relevant to Health Maintenance Results * (ABNORMAL) POC Urine Non-Auto W/O Micro (06/06/2025 2:01 PM EDT) GLUCOSE POC Negative Negative, Trace mg/dL Leukocytes UA POC 1+(A) Negative mg/dL Nitrite UA POC Positive Urobilinogen UA POC 1.0 E.U./dL mg/dL Protein UA POC Positive Positive, Negative PH UA POC 5.0 WAQAS/HM UA POC 250(A) Negative Specific [place] UA POC 1.025 Ketones UA POC 1+(A) Negative Bilirubin UA POC 2+(A) Negative Urine Urine specimen obtained by clean catch procedure / Unknown 06/06/2025 2:01 PM EDT Kong Liao MD POINT OF CARE TEST ENTER/EDIT OR DERABLES Final Result * (ABNORMAL) CBC auto differential (06/06/2025 11:23 AM EDT) WBC 3.5(L) 4.8 - 10.8 K/mcL LAB [facility] RBC 4.70 3.80 - 4.80 M/mcL LAB HEMETOLOGY METHOD 06/06[facility]2025 7[facility] Hemoglobin 13.4 11.5 - 16.0 g/dL LAB HEMETOLOGY METHOD 06/06/2025 7:38 PM [facility] Hematocrit 42.7 35.0 - 47.0 % LAB HEMETOLOGY METHOD 06/06/2025 7:38 [facility] MCV 91.2 79.0 - 98.0 FL LAB HEMETOLOGY METHOD 06/06/2025 7:38 PM [facility] MCH 28.6 27.0 - 32.0 pcg LAB HEMETOLOGY METHOD 06/06/2025 7:38 PM [facility] MCHC 31.4(L) 32.0 - 37.0 g/dL LAB HEMETOLOGY METHOD 06/06/2025 7:38 PM [facility] RDW 15.1(H) 11.0 - 15.0 % LAB HEMETOLOGY METHOD 06/06/2025 7:38 PM [facility] Platelets 253 130 - 400 K/mcL LAB HEMETOLOGY METHOD 06/06/2025 7:38 PM [facility] MPV 10.5 7.0 - 11.0 FL LAB HEMETOLOGY METHOD 06/06/2025 7:38 PM EDT [facility] NRBC 0.0 <1.0 % LAB HEMETOLOGY METHOD 06/06/2025 7:38 [facility] NRBC Absolute 0.00 <0.10 K/mcL LAB HEMETOLOGY METHOD 06/06/2025 7:38 PM [facility] Neutrophils Relative 42.4 % LAB HEMETOLOGY METHOD 06/06/2025 7:38 PM [facility] Lymphocytes Relative 41.2 % LAB HEMETOLOGY METHOD 06/06/2025 7:38 [facility] Monocytes Relative 13.5 % LAB HEMETOLOGY METHOD 06/06/2025 7:38 PM [facility] Eosinophils Relative 1.4 % LAB HEMETOLOGY METHOD 06/06/2025 7:38 PM [facility] Basophils Relative 1.2 % LAB HEMETOLOGY METHOD 06/06/2025 7:38 PM [facility] Immature Granulocytes Relative 0.3 % LAB HEMETOLOGY METHOD 06/06/2025 7:38 PM [facility] Neutrophils Absolute 1.47(L) 1.50 - 7.00 K/mcL LAB HEMETOLOGY METHOD 06/06/2025 7:38 PM [facility] Lymphocytes Absolute 1.43 1.00 - 5.00 K/mcL LAB HEMETOLOGY METHOD 06/06/2025 7:38 PM [facility] Monocytes Absolute 0.47 0.20 - 1.00 K/mcL LAB HEMETOLOGY METHOD 06/06/2025 7:38 PM [facility] Eosinophils Absolute 0.05 0.00 - 0.50 K/mcL LAB HEMETOLOGY METHOD 06/06/2025 7:38 PM [facility] Basophils Absolute 0.04 0.00 - 0.20 K/mcL LAB HEMETOLOGY METHOD 06/06/2025 7:38 PM EDT [facility] Immature Granulocytes Absolute 0.01 0.00 - 0.03 K/[facility] LAB HEMETOLOGY METHOD 06/06/2025 7:38 PM EDT [facility] Blood Venous blood specimen / Unknown Venipuncture / Unknown 06/06/2025 11:23 AM EDT 06/06/2025 11:23 AM EDT us Kong Liao MD LAB BLOOD ORDERABLES Final Resul t Performing Organization Address City/[facility]/ZIP Co de Phone Number [facility] [address] [place] [address], [place] [phone] * Culture urine (06/06/2025 11:23 AM EDT) Pathologist [facility] Culture, Urine 10,000-49,000 CFU/mL Mixed bacterial morphotypes present suggestive of possible contamination during collection. Suggest appropriate recollection if clinically indicated. 06/07/2025 2:21 PM EDT [facility] Urine Urine specimen obtained by clean catch procedure / Unknown Non-blood Collection / Unknown 06/06/2025 11:23 AM EDT 06/06/2025 11:23 AM EDT us Kong Liao MD LAB MICROBIOLOGY - GENERAL ORDER INDY Final Result Performing Organization Address City/[facility]/ZIP Co de Phone Number [facility] [address] [place] [address], [place] [phone] * (ABNORMAL) Comprehensive metabolic panel (06/06/2025 11:23 AM EDT) Sodium 137 133 - 145 mmol/L LAB CHEMISTRY METHOD 06/06/2025 8:21 PM EDT [facility] Potassium 4.4 3.5 - 5.5 mmol/L LAB CHEMISTRY METHOD 06/06/2025 8:21 PM [facility] Chloride 103 96 - 110 mmol/L LAB CHEMISTRY METHOD 06/06/2025 8:21 PM [facility] CO2 30 21 - 32 mmol/L LAB CHEMISTRY METHOD 06/06/2025 8:21 PM [facility] Anion Gap 4 3 - 11 LAB CHEMISTRY METHOD 06/06/2025 8:21 PM [facility] Glucose 80 70 - 100 mg/dL LAB CHEMISTRY METHOD 06/06/2025 8:21 PM [facility] BUN 8 5 - 25 mg/dL LAB CHEMISTRY METHOD 06/06/2025 8:21 PM [facility] Creatinine 0.68 0.50 - 1.10 mg/dL LAB CHEMISTRY METHOD 06/06/2025 8:21 PM [facility] eGFR 101 >=60 mL/min/1. 73m2 LAB CHEMISTRY METHOD 06/06/2025 8:21 PM [facility] Comment:Calculation based on the Chronic Kidney Disease Epidemiology Collaboration (CKD-EPI) equation refit without adjustment for race. BUN/Creatinine Ratio 11.8 LAB CHEMISTRY METHOD 06/06/2025 8:21 PM [facility] Calcium 9.2 8.5 - 10.5 mg/dL LAB CHEMISTRY METHOD 06/06/2025 8:21 PM [facility] AST (SGOT) 74(H) 10 - 42 unit/L LAB CHEMISTRY METHOD 06/06/2025 8:21 PM [facility] ALT (SGPT) 78(H) 10 - 60 unit/L LAB CHEMISTRY METHOD 06/06/2025 8:21 PM [facility] Alkaline Phosphatase 90 42 - 121 unit/L LAB CHEMISTRY METHOD 06/06/2025 8:21 PM [facility] Total Protein 7.3 6.0 - 8.0 g/dL LAB CHEMISTRY METHOD 06/06/2025 8:21 PM EDT [facility] Albumin 4.0 3.2 - 5.0 g/dL LAB CHEMISTRY METHOD 06/06/2025 8:21 PM EDT [facility] Total Bilirubin 1.0 0.0 - 1.4 mg/dL LAB CHEMISTRY METHOD 06/06/2025 8:21 PM EDT [facility] Blood Venous blood specimen / Unknown Venipuncture / Unknown 06/06/2025 11:23 AM EDT 06/06/2025 11:23 AM EDT Kong Liao MD LAB BLOOD ORDERABLES Final Resul t [facility] [address] [place] [address], [place] [phone] * HIV Screening (07/10/2024) Pathologist [facility] HIV Screening abstracted [facility] Provider HEALTH MAINTENANCE Final Result * SCREENING MAMMOGRAPHY BI 2-VIEW BREAST INC [...] interpreted with the aid of computer-aided detection. Comparison is made with 05/21/2023 and as far back as 07/11/2019. Breast parenchyma is heterogeneously dense, which may obscure small masses. No new suspicious mass, architectural distortion, or suspicious [...] evidence of malignancy. BI-RADS 1 - negative Result [facility] Ricardo Cash CN IMG XR PROCEDURES Final Result * (ABNORMAL) Lipid panel (04/04/2024) [facility] LDL/HDL Ratio 3 0 - 4 Triglycerides 95 0 - 150 mg/dL Cholesterol 229(A) 0 - 200 mg/dL HDL 79 >=40 mg/dL LDL Cholesterol 131(A) 0 - 100 mg/dL Blood Venous blood specimen / Unknown Result [facility] Provider LAB BLOOD ORDERABLES Evelyne l Result * Depression Screening (04/03/2024) [facility] Depression Screening abstracted Result [facility] Provider HEALTH MAINTENANCE Final Result * Cervical Cancer Screening: HPV (06/03/2022) [facility] Cervical Cancer Screening: HPV normal, abstracted Result [facility] Provider HEALTH MAINTENANCE Final Result * Hepatitis C Screening (08/09/2017) [facility] Hepatitis C Screening abstracted Result [facility] Provider HEALTH MAINTENANCE Final Result * Colonoscopy (07/22/2017) [facility] Colonoscopy no interpretation , abstracted Anatomical Region Laterality Modality Other Result [facility] Provider HEALTH MAINTENANCE Final Result from Last 3 Months or Most Recently Relevant to Health Maintenance Insurance [facility] [employer] [facility] Advance Directives Documents on File Type Date Recorded Patient Programming Director Expl anation Health Care Decision (hx) 08/05/2021 AD [place] DIRECTIVE Health Care Decision (hx) 08/05/2021 AD WYMAN DIRECTIVE Health Care Decision (hx) 08/05/2021 AD [place]YMAN DIRECTIVE Health Care Decision (hx) 08/05/2021 AD WYMAN DIRECTIVE Health Care Decision (hx) 08/05/2021 AD WYMAN DIRECTIVE Health Care Decision (hx) 08/05/2021 AD WYMAN DIRECTIVE Care Teams Mushroom Sorter Grader Relationship Specialty Start Date End Date Suhail Mir MD [address] [place] [phone] PCP - General Internal Medicine 05/31/17
== END 2025-06-13 10:07 | disposition home or self-care (01) ==
LOC: HO.RHE 09:10
PROVIDERS: Visit Provider Student in an Organized Health Care Education/Training Program
DX: M35.89 Other specified systemic involvement of connective tissue (principal); R74.01 Elevation of levels of liver transaminase levels; R31.9 Hematuria, unspecified; Z79.899 Other long term (current) drug therapy
CPT/HCPCS: 99214; G2211

== ENCOUNTER → 2025-06-13 09:09 | Outpatient (BNVA) | payer OTHER, SELFPAY | PROVIDERS: Visit Provider Student in an Organized Health Care Education/Training Program | DX: M35.9 Systemic involvement of connective tissue, unspecified (principal); R74.01 Elevation of levels of liver transaminase levels; M32.9 Systemic lupus erythematosus, unspecified; R76.8 Other specified abnormal immunological findings in serum; R31.9 Hematuria, unspecified; E55.9 Vitamin D deficiency, unspecified; Z79.899 Other long term (current) drug therapy | CPT/HCPCS: 99212 ==

== ENCOUNTER 2025-08-06 10:35 | Outpatient (REF) | payer OTHER, SELFPAY ==
--- NOTE | ~2025-08-06 | US_ITS ---
EXAMINATION: US ABDOMEN COMPLETE WITH LIVER ELASTOGRAPHY HISTORY: R74.01 - Elevation of levels of liver transaminase levels TECHNIQUE: Real-time grayscale ultrasound imaging of the abdomen was performed and images were reviewed. COMPARISON: There are no prior studies available for comparison. FINDINGS: Liver: The right lobe of the liver measures 15.1 cm in size. The left lobe of the liver measures 9.0 cm in size. The liver demonstrates normal homogeneous echotexture. No focal mass or intrahepatic biliary ductal dilatation is identified. There is normal hepatopedal flow in the portal vein. Ultrasound elastography of the liver was performed with 10 separate measurements of the liver parenchyma with the patient in the supine position. Measurements were obtained approximately 2 cm below Genesis's capsule and perpendicular to the capsule. The median shear wave velocity is 1.33 m/s. The interquartile range/median (IQR/median) is 0.10. Gallbladder and biliary tree: The gallbladder is unremarkable, without evidence of calculi, wall thickening, or pericholecystic fluid. There is no sonographic Marc sign. The common bile duct is normal in caliber measuring 3 mm. Kidneys: The right kidney measures 9.9 cm in length. The left kidney measures 9.6 cm in length. The kidneys are unremarkable, without evidence of masses, hydronephrosis, or calculi. Pancreas: The pancreatic head, neck, and body are unremarkable. The pancreatic tail is obscured by bowel gas. Spleen: The spleen is normal in size and contour, measuring 7.8 cm in length. Abdominal aorta and inferior vena cava: The visualized portions of the abdominal aorta and inferior vena cava are normal in caliber. There is no free fluid in the abdomen. US/US abdomen comp w elastography IMPRESSION: Unremarkable abdominal ultrasound. The median shear wave velocity in the liver is 1.33 m/s, corresponding to a median liver stiffness of 5.45 kPa. The IQR/median value is 0.10. This is indicative of a quality data set. Findings are indicative of a low elastography value which rules out advanced chronic liver disease in asymptomatic patients. REFERENCE: Society of Radiologists in Ultrasound Liver Stiffness Thresholds (2020): LIVER STIFFNESS THRESHOLDS: *Shear wave velocity less than 1.3 m/s (Liver Stiffness equal or less than 5 kPa): High probability of being normal. *Shear wave velocity less than 1.7 m/s (Liver Stiffness less than 9 kPa): In the absence of other known clinical signs, rules out compensated advanced chronic liver disease. *Shear wave velocity between 1.7-2.1 m/s (Liver Stiffness 9-13 kPa): Suggestive of compensated advanced chronic liver disease but need further test for confirmation. *Shear wave velocity between 2.1-2.4 m/s (Liver Stiffness 13-17 kPa): Rules in compensated advanced chronic liver disease. *Shear wave velocity greater than 2.4 m/s (Liver Stiffness over 17 kPa): Suggestive of clinically significant portal hypertension. QUALITY OF DATA SET: *IQR/Median value equal or less than 0.15 implies a quality data set. *IQR/Median value over 0.15 implies a poor quality data set. SIGNIFICANT CHANGE FROM PRIOR EXAM: Significant change if liver stiffness measurement is 10% or greater from prior exam. OTHER CONSIDERATIONS: The stage of liver fibrosis may be overestimated in the setting of acute hepatitis, liver inflammation, elevated liver function tests, hepatic vascular congestion, obstructive cholestasis, non-fasting state, and infiltrative diseases such as amyloidosis and lymphoma. In some patients with NAFLD, the liver stiffness thresholds for compensated advanced chronic liver disease may be lower. In causes other than viral hepatitis and NAFLD, liver stiffness thresholds are not well established. Electronically signed by: Beau Mclain MD 08/06/2025 11:52 AM EDT
--- OUTSIDE RECORDS SUMMARY | 2025-08-06 14:01 | XMS_ITS | Clinical Summary ---
Author Organization [facility] Address [address] [place] [address] Phone Care Team Providers Care Gearman Name Role Phone Suhail Mir MD Primary Care Provider [phone] Allergies Active Allergy Reactions Criticality Noted Date Comments Latex 10/11/2024 Medications apixaban (Eliquis) 5 mg tablet Take 5 mg by mouth every 12 hours. 3 Active metoprolol tartrate (LOPRESSOR) 25 mg tablet Take 1 Tablet by mouth 2 times daily for 180 days. 4 Active mometasone (ELOCON) 0.1 % cream Apply topically 1 (one) time each day for 21 days. 45 g 1 4 Active polyethylene glycol (Golytely) 236-22.74-6.74 -5.86 gram solution Take 4L by mouth once for one dose. May substitue any PEG. Starting at 6PM the night before your procedure drink 1 8oz glasses at your own pace until you complete half of the gallon. Finish 2nd half of the gallon 5 hours before your procedure. 4000 mL 4 Active polyethylene glycol 400 (Visine Dry Eye Relief) 1 % drops Administer into affected eye(s). Active cyanocobalamin (VITAMIN B-12) 1,000 mcg tablet Take 0.5 tablets (500 mcg total) by mouth 1 (one) time each day. Active cholecalcifero l (VITAMIN D-3) 50 mcg (2,000 unit) tablet Take 1 tablet (2,000 Units total) by mouth 1 (one) time each day. Take 1 Tablet by mouth daily. 90 tablet 1 5 Active polyethylene glycol (Golytely) 236-22.74-6.74 -5.86 gram solution Take 4L by mouth once for one dose. May substitue any PEG. Starting at 6PM the night before your procedure drink 1 8oz glasses at your own pace until you complete half of the gallon. Finish 2nd half of the gallon 5 hours before your procedure. 4000 mL 5 Active bisacodyL (DULCOLAX) 5 mg EC tablet Take 2 tablets by mouth right before beginning bowel prep. See instructions provided by the office 2 tablet 5 Active Ventolin HFA 90 mcg/actuation inhaler INHALE 2 PUFFS EVERY 4 HOURS NEEDED FOR COUGH, WHEEZING OR FOR SHORTNESS OF BREATH 18 g 2 5 Active cetirizine (ZyrTEC) 10 mg tablet Take 1 Tab by mouth daily for 180 days. 0 025 Discontin ued(Expir ed) omeprazole (PriLOSEC) [address] capsule Take 1 Capsule by mouth daily. 025 Discontin ued(Non-c ompliance ) bisacodyL (DULCOLAX) 5 mg EC tablet Take 2 tablets by mouth right before beginning bowel prep. See instructions provided by the office 2 tablet 4 025 Discontin ued(Patie nt Discharge ) ferrous sulfate 325 mg (65 mg elemental iron) tablet Take 1 tablet (325 mg total) by mouth every other day. 025 Discontin ued(Non-c ompliance ) Active Problems Problem Noted Date Diagnosed Date [...] referral to Dermatology; Future Secondary hypercoagulable state ([facility] V24) PAF (paroxysmal atrial fibri llation) ([facility] V24, [facility] V28) 11/12/2022 Assessment & Plan (02/11/2025 10:33 [...] 10/20/2020 COPD (chronic obstructive pu lmonary disease) ([facility] V24, [facility] V28) 07/15/2017 Assessment & Plan (02/11/2025 10:33 [...] Encounters Date Type Department Care Team Description 07/18/2025 9:30 AM EDT [facility] [address] [place] [address] Miller Landrum NP Elevated liver enzymes (Primary Dx); Vitamin D deficiency 06/06/2025 10:30 AM EDT Office Visit Walk-In Clinic - [address] [phone] Kong Liao MD UTI symptoms (Primary Dx) 06/06/2025 Telephone Internal Medicine - [address] [place] [phone] Suhail Mir MD from Last 3 Months Immunizations Name Administration [...] biopsies normal. UPPER GASTROINTESTINAL ENDOSCOPY 07/22/2017 PROCEDURE: MD UPPER GI ENDOSCOPY PERFORMED; COMMENT: Visually normal, duodenal and antral gastric biopsies obtained: All biopsies normal, no H. pylori infection. Medical History Medical History Date Comments Eczema 05/13/2016 DX:Eczema Cigarette smoker 03/06/2010 DX:Cigarette sm oker COPD (chronic obstructive pu lmonary disease) ([facility] V24, [facility] V28) 07/15/2017 DX:COPD (chronic o bstructive pulmonary disease) ([facility]) Enlarged uterus 07/15/2017 DX:Enlarged uter [...] Sign Reading Time Taken Comments Blood Pressure 142/80 07/18/2025 10:00 AM EDT Pulse 70 07/18/2025 9:28 AM EDT Temperature - - Respiratory Rate - - Oxygen Saturation 97% 06/06/2025 10: 23 AM EDT Inhaled Oxygen Concentration - - Weight 57.5 kg (126 lb 11.2 oz) 07/18/2025 9:22 AM EDT Height 165.1 cm (5' 5 ) 07/18/2025 9:22 AM EDT Body Mass Index 21.08 07/18/2025 9:22 AM EDT Plan of Treatment Upcoming Encounters Date Type Department Care Team (Late st Contact Info) Description 08/26/2025 9:00 AM EDT Appointment [facility]oscopy [address] [place] [id number] Rafiq Landeros DO [address] [facility] [address] [place] [address] 09/26/2025 7:50 AM EST Office Visit [facility] - [facility] [address] [facility] [address] [place] [phone] Courtney Coelho MD [address] [place] [address] Dr [address] [place] [address] 10/18/2025 9:30 AM EST Office Visit Internal Medicine - [facility] [address] [place] [phone] Miller Landrum, COMPLIANCE QUALITY PERFORMANCE ANALYST [address] [place] [address] Health Maintenance Due Date Last Done Comments [...] 04/04/2024, 04/04/2024 Colorectal Cancer Screening: Colonoscopy Discontinued 07/22/2017, 07/22/2017 HIV Screening Completed 07/10/2024, 07/10/2024 Hepatitis C Screening Completed 07/18/2025, 017 HIB Vaccines Aged Out No longer eligi ble based on patient's age to complete this topic HPV Vaccines Aged Out No longer eligi ble based on patient's age to complete this topic Hepatitis A Vaccines Aged Out No long er eligible based [...] Procedure Name Priority Date/Time Associated Diagnosis Comments COMPREHENSIVE METABOLIC PANEL Routine 07/18/2025 10:13 AM EDT Elevated liver enzymes VITAMIN D 25 HYDROXY Routine 07/18/2025 10:13 AM EDT Vitamin D deficiency HEPATITIS PANEL, ACUTE WITH REFLEX TO CONFIRMATION Routine 07/18/2025 10:13 AM EDT Elevated liver enzymes FERRITIN Routine 07/18/2025 10:13 AM EDT Elevated liver enzymes POC URINE NON-AUTO W/O MICRO Routine 06/06/2025 2:01 PM EDT UTI symptoms CBC WITH AUTO DIFFERENTIAL Routine 06/06/2025 11:23 AM EDT UTI symptoms COMPREHENSIVE METABOLIC PANEL Routine 06/06/2025 11:23 AM EDT UTI symptoms CBC AND DIFFERENTIAL Routine 06/06/2025 11:23 AM EDT UTI symptoms CULTURE URINE Routine 06/06/2025 11:23 AM EDT UTI symptoms HIV SCREENING Routine 07/10/2024 SCREENING MAMMOGRAPHY BI 2-VIEW BREAST INC CAD Routine 06/29/2024 1:12 PM EDT Encounter for screening mammogram for malignant neoplasm of breast LIPID PANEL Routine 04/04/2024 DEPRESSION SCREENING Routine 04/03/2024 HPV Routine 06/03/2022 COLONOSCOPY Routine 07/22/2017 from Last 3 Months or Most Recently Relevant to Health Maintenance Results * Hepatitis panel, acute with reflex to confirmation (07/18/2025 10:13 AM EDT) [facility] Hepatitis B Surface Ag Negative Negative LAB CHEMISTRY METHOD 07/18/2025 5:51 PM EDT [facility] Hepatitis A Antibody IgM Negative Negative LAB CHEMISTRY METHOD 07/18/2025 5:51 PM EDT [facility] Hep B Core IgM Negative Negative LAB CHEMISTRY METHOD 07/18/2025 5:51 PM EDT [facility] Hepatitis C Antibody Negative Negative LAB CHEMISTRY METHOD 07/18/2025 5:51 PM EDT [facility] Blood Venous blood specimen / Unknown Venipuncture / Unknown 07/18/2025 10:13 AM EDT 07/18/2025 10:13 AM EDT us Miller Landrum NP LAB BLOOD ORDERABLES Final Res ult [facility] [address] [place] [address], [place] [phone] * Vitamin D 25 hydroxy (07/18/2025 10:13 AM EDT) [facility] Vit D, 25-Hydroxy 30.8 30.0 - 80.0 ng/mL LAB CHEMISTRY METHOD 07/18/2025 7:33 PM EDT [facility] Blood Venous blood specimen / Unknown Venipuncture / Unknown 07/18/2025 10:13 AM EDT 07/18/2025 10:13 AM EDT us Miller Landrum NP LAB BLOOD ORDERABLES Final Res ult [facility] [address] [place] [address], [place] [phone] * Ferritin (07/18/2025 10:13 AM EDT) [facility] Ferritin 149 8 - 252 ng/mL LAB CHEMISTRY METHOD 07/18/2025 4:04 PM [facility] Blood Venous blood specimen / Unknown Venipuncture / Unknown 07/18/2025 10:13 AM EDT 07/18/2025 10:13 AM EDT Miller Landrum NP LAB BLOOD ORDERABLES Final Res ult [facility] [address] [place] [address], [place] [phone] * Comprehensive metabolic panel (07/18/2025 10:13 AM EDT) Only the most recent of2 resultswithin the time period is included. [facility] Sodium 139 133 - 145 mmol/L LAB CHEMISTRY METHOD 07/18/2025 4:04 PM [facility] Potassium 4.6 3.5 - 5.5 mmol/L LAB CHEMISTRY METHOD 07/18/2025 4:04 PM [facility] Chloride 105 96 - 110 mmol/L LAB CHEMISTRY METHOD 07/18/2025 4:04 PM [facility] CO2 30 21 - 32 mmol/L LAB CHEMISTRY METHOD 07/18/2025 4:04 PM [facility] Anion Gap 4 3 - 11 LAB CHEMISTRY METHOD 07/18/2025 4:04 PM [facility] Glucose 91 70 - 100 mg/dL LAB CHEMISTRY METHOD 07/18/2025 4:04 PM [facility] BUN 8 5 - 25 mg/dL LAB CHEMISTRY METHOD 07/18/2025 4:04 PM [facility] Creatinine 0.62 0.50 - 1.10 mg/dL LAB CHEMISTRY METHOD 07/18/2025 4:04 PM [facility] eGFR 103 >=60 mL/min/1. 73m2 LAB CHEMISTRY METHOD 07/18/2025 4:04 PM [facility] Comment:Calculation based on the Chronic Kidney Disease Epidemiology Collaboration (CKD-EPI) equation refit without adjustment for race. BUN/Creatinine Ratio 12.9 LAB CHEMISTRY METHOD 07/18/2025 4:04 PM [facility] Calcium 9.5 8.5 - 10.5 mg/dL LAB CHEMISTRY METHOD 07/18/2025 4:04 PM [facility] AST (SGOT) 25 10 - 42 unit/L LAB CHEMISTRY METHOD 07/18/2025 4:04 PM [facility] ALT (SGPT) 28 10 - 60 unit/L LAB CHEMISTRY METHOD 07/18/2025 4:04 PM [facility] Alkaline Phosphatase 56 42 - 121 unit/L LAB CHEMISTRY METHOD 07/18/2025 4:04 PM [facility] Total Protein 7.1 6.0 - 8.0 g/dL LAB CHEMISTRY METHOD 07/18/2025 4:04 PM [facility] Albumin 3.9 3.2 - 5.0 g/dL LAB CHEMISTRY METHOD 07/18/2025 4:04 PM [facility] Total Bilirubin 0.5 0.0 - 1.4 mg/dL LAB CHEMISTRY METHOD 07/18/2025 4:04 PM [facility] Blood Venous blood specimen / Unknown Venipuncture / Unknown 07/18/2025 10:13 AM EDT 07/18/2025 10:13 AM EDT us Miller Landrum NP LAB BLOOD ORDERABLES Final Res ult [facility] [address] [place] [address], * (ABNORMAL) POC Urine Non-Auto W/O Micro (06/06/2025 2:01 PM EDT) [facility] GLUCOSE POC Negative Negative, Trace mg/dL Leukocytes UA POC 1+(A) Negative mg/dL Nitrite UA POC Positive Urobilinogen UA POC 1.0 E.U./dL mg/dL Protein UA POC Positive Positive, Negative PH UA POC 5.0 WAQAS/HM UA POC 250(A) Negative Specific Bradley UA POC 1.025 Ketones UA POC 1+(A) Negative Bilirubin UA POC 2+(A) Negative Urine Urine specimen obtained by clean catch procedure / Unknown 06/06/2025 2:01 PM EDT Kong Liao MD POINT OF CARE TEST ENTER/EDIT OR DERABLES Final Result * (ABNORMAL) CBC auto differential (06/06/2025 11:23 AM EDT) [facility] WBC 3.5(L) 4.8 - 10.8 K/mcL LAB [facility] RBC 4.70 3.80 - 4.80 M/mcL LAB HEMETOLOGY METHOD 06/06/2025 7:38 PM EDT [facility] Hemoglobin 13.4 11.5 - 16.0 g/dL LAB HEMETOLOGY METHOD 06/06/2025 7:38 PM [facility] Hematocrit 42.7 35.0 - 47.0 % LAB HEMETOLOGY METHOD 06/06/2025 7:38 PM EDT [facility] MCV 91.2 79.0 - 98.0 FL LAB HEMETOLOGY METHOD 06/06/2025 7:38 PM [facility] MCH 28.6 27.0 - 32.0 pcg LAB HEMETOLOGY METHOD 06/06/2025 7:38 PM [facility] MCHC 31.4(L) 32.0 - 37.0 g/dL LAB HEMETOLOGY METHOD 06/06/2025 7:38 PM [facility] RDW 15.1(H) 11.0 - 15.0 % LAB HEMETOLOGY METHOD 06/06[facility]2025 7[facility] Platelets 253 130 - 400 K/mcL LAB HEMETOLOGY METHOD 06/06/2025 7:38 PM [facility] MPV 10.5 7.0 - 11.0 FL LAB HEMETOLOGY METHOD 06/06/2025 7:38 PM [facility] NRBC 0.0 <1.0 % LAB HEMETOLOGY METHOD 06/06/2025 7:38 PM [facility] NRBC Absolute 0.00 <0.10 K/mcL LAB HEMETOLOGY METHOD 06/06/2025 7:38 PM [facility] Neutrophils Relative 42.4 % LAB HEMETOLOGY METHOD 06/06/2025 7:38 PM [facility] Lymphocytes Relative 41.2 % LAB HEMETOLOGY METHOD 06/06/2025 7:38 PM [facility] Monocytes Relative 13.5 % LAB HEMETOLOGY METHOD 06/06/2025 7:38 PM [facility] Eosinophils Relative 1.4 % LAB HEMETOLOGY METHOD 06/06/2025 7:38 PM [facility] Basophils Relative 1.2 % LAB HEMETOLOGY METHOD 06/06/2025 7:38 PM [facility] Immature Granulocytes Relative 0.3 % LAB HEMETOLOGY METHOD 06/06/2025 7:38 PM [facility] Neutrophils Absolute 1.47(L) 1.50 - 7.00 K/mcL LAB HEMETOLOGY METHOD 06/06/2025 7:38 PM [facility] Lymphocytes Absolute 1.43 1.00 - 5.00 K/mcL LAB HEMETOLOGY METHOD 06/06/2025 7:38 PM EDT [facility] Monocytes Absolute 0.47 0.20 - 1.00 K/mcL LAB HEMETOLOGY METHOD 06/06/2025 7:38 PM EDT [facility] Eosinophils Absolute 0.05 0.00 - 0.50 K/[facility] LAB HEMETOLOGY METHOD 06/06/2025 7:38 PM EDT [facility] Basophils Absolute 0.04 0.00 - 0.20 K/[facility] LAB HEMETOLOGY METHOD 06/06/2025 7:38 PM EDT [facility] Immature Granulocytes Absolute 0.01 0.00 - 0.03 K/[facility] LAB HEMETOLOGY METHOD 06/06/2025 7:38 PM EDT [facility] Blood Venous blood specimen / Unknown Venipuncture / Unknown 06/06/2025 11:23 AM EDT 06/06/2025 11:23 AM EDT us Kong Liao MD LAB BLOOD ORDERABLES Final Resul t [facility] [address] [place] [address], [place] [phone] * Culture urine (06/06/2025 11:23 AM EDT) Culture, Urine 10,000-49,000 CFU/mL Mixed bacterial morphotypes present suggestive of possible contamination during collection. Suggest appropriate recollection if clinically indicated. 06/07/2025 2:21 PM EDT [facility] Urine Urine specimen obtained by clean catch procedure / Unknown Non-blood Collection / Unknown 06/06/2025 11:23 AM EDT 06/06/2025 11:23 AM EDT us Kong Liao MD LAB MICROBIOLOGY - GENERAL ORDER INDY Final Result Performing Organization Address City/[facility]/ZIP Co de Phone Number [facility] [address] [place] [address], * HIV Screening (07/10/2024) HIV Screening abstracted Historical Provider HEALTH MAINTENANCE Final Result * SCREENING [...] negative Ricardo Cash CNM IMG XR PROCEDURES Final Result * (ABNORMAL) Lipid panel (04/04/2024) LDL/HDL Ratio 3 0 - 4 Triglycerides 95 0 - 150 mg/dL Cholesterol 229(A) 0 - 200 mg/dL HDL 79 >=40 mg/dL LDL Cholesterol 131(A) 0 - 100 mg/dL Blood Venous blood specimen / Unknown Historical Provider LAB BLOOD ORDERABLES Evelyne l Result * Depression Screening (04/03/2024) Pathologist [facility] Depression Screening abstracted [facility] Provider HEALTH MAINTENANCE Final Result * Cervical Cancer Screening: HPV (06/03/2022) Pathologist [facility] Cervical Cancer Screening: HPV normal, abstracted [facility] Provider HEALTH MAINTENANCE Final Result * Colonoscopy (07/22/2017) Pathologist [facility] Colonoscopy no interpretation , abstracted Anatomical Region Laterality Modality Other [facility] Provider HEALTH MAINTENANCE Final Result from Last 3 Months or Most Recently Relevant to Health Maintenance Insurance [facility] [employer] Advance Directives Documents on File Type Date Recorded Patient Administrative Support Coordinator Expl anation Health Care Decision (hx) 08/05/2021 AD WYMAN DIRECTIVE Health Care Decision (hx) 08/05/2021 AD WYMAN DIRECTIVE Health Care Decision (hx) 08/05/2021 AD WYMAN DIRECTIVE Health Care Decision (hx) 08/05/2021 AD WYMAN DIRECTIVE Health Care Decision (hx) 08/05/2021 AD WYMAN DIRECTIVE Health Care Decision (hx) 08/05/2021 AD WYMAN DIRECTIVE Care Teams Gearman Relationship Specialty Start Date End Date Suhail Mir MD [address] [place] [id number] PCP - General Internal Medicine 05/31/17
--- OUTSIDE RECORDS SUMMARY | 2025-08-06 14:01 | XMS_ITS | Clinical Summary ---
Author Organization [facility] Address [address] [place], [place] [id number] Phone Care Team Providers Care Journeyman Electrician Name Role Phone Suhail Mir MD Primary Care Provider [phone] Allergies No known active allergies Medications albuterol [...] 2) 2016 Adult Td,Tdap Booster 03/27/2024 03/27/2014 INFLUENZA VACCINE (#1) 2025 COVID-19 VACCINE (1 - 2023-2 5 season) 2025 LIPID PANEL 04/04/2029 04/04/2024 HEPATITIS A VACCINES [...] topic Medical Devices Not on file Insurance [facility] NON NSPG PCP SHAKILA TSANG [employer] NON NSPG PCP [employer] Member Subscriber Plan / Payer (Ef fective 2023-Present) Name:Adenike Kulkarni Relation to Subscriber:Self Name:Adenike Kulkarni Payer ID:[id number] Type:HMO Address: [place] [id number] [employer] NON NSPG PCP [employer] NON NSPG PCP [employer] NON NSPG PCP [employer] NON NSPG PCP [employer] Care Teams Journeyman Electrician Relationship Specialty Start Date End Date Suhail Mir MD [address] [place] [id number] PCP - General Internal Medicine 10/26/24 Additional Source Comments The information contained in this document represents components of the legal health record. It is not the complete legal health record.[facility]
== END 2025-08-06 10:36 | disposition home or self-care (01) ==
LOC: HO.US 10:35
PROVIDERS: Visit Provider Student in an Organized Health Care Education/Training Program
DX: R74.01 Elevation of levels of liver transaminase levels (principal)
CPT/HCPCS: 76700; 76981

== ENCOUNTER → 2025-08-06 10:37 | Outpatient (BNV) | payer OTHER, SELFPAY | PROVIDERS: Visit Provider Radiology Diagnostic Radiology | DX: R74.01 Elevation of levels of liver transaminase levels (principal) | CPT/HCPCS: 76700 ==